=== PATIENT | female | born 1950 | race African-American/Black ===

== ENCOUNTER 2016-11-05 16:50 | Emergency (ER) | payer OTHER, MEDICARE ==
[~2016-11-05] VITALS: Ht 167.6 cm; Wt 79.4 kg
[~2016-11-05 16:50] MED LIST: APRESOLINE50 MG PO; ASPIRIN EC325 M2 PO; ATORVASTATIN CA10 M1 PO; ATORVASTATIN CA10 MG PO; CLARITIN10 MG PO; COZAAR 50MG TAB50 MG PO; DOCUSATE SODIU100 MG PO; EPOGEN10000 UNIT IV; FLEXERIL10 MG PO; FUROSEMIDE40 MG PO; GABAPENTIN300 M2 PO; HECTOROL4 MCG/2 ML IV; HUMALOG100 UNIT/2 SC; HYDRALAZINE10 MG PO; HYDROXYZINE50 MG PO; LASIX40 MG PO; LASIX80 MG PO; LEVEMIR 10100 UNITS/ SC; LEVEMIR100 UNIT/1 SC; LIDODERM1 EACH TOP; LOPRESSOR 25MG25 MG PO; LOPRESSOR50 MG PO; LORADAMED10 MG PO; LOSARTAN POTASS25 M1 PO; LOSARTAN POTASS50 M1 PO; LOSARTAN POTASS50 MG PO; MASON NATURAL2000 IU PO; METOPROLOL TART25 M1 PO; NEPHROCAPS1 TAB PO; NOVOLOG100 U/ML SC; NOVOLOG100 UNIT/2 SC; PERCOCET 325 MG1 TA2 PO; PHOS LO667 MG PO; PHOSLYRA667 MG/51 PO; SENNA S TABLET1 EACH PO; SENSIPAR30 M1 PO; TYLENOL325 M1 PO; VENOFER100 MG/5 M IV; VICODIN5-300 PO; VITAMIN D1000 IU PO
--- NOTE | 2016-11-05 18:43 | ED SKIN/ALLERGY COMPLAINT ---
History of Present Illness General Chief Complaint: Skin Rash/ Abcess Stated Complaint: BODY ITCHING Source: patient, family Exam Limitations: no limitations Vital Signs & Intake/Output Vital Signs & Intake/Output Vital Signs Date Time Temp Pulse Resp B/P B/P Pulse O2 O2 Flow FiO2 Mean Ox Delivery Rate 11/05 1702 98.1 86 16 106/67 98 Room Air Allergies Coded Allergies: NO KNOWN ALLERGIES (04/04/16) Triage Note: PT C/O BODY ITCHING ALL OVER NO RASH NOTED. PT STATES SHE HAS ALLERGY. Triage Nurses Notes Reviewed? yes Onset: Abrupt Duration: day(s): (3) Timing: recent history Severity: mild Location: generalized HPI: This is a 65-year-old female with history of end-stage renal disease on hemodialysis, recently started on Aggrenox in order to keep her graft patent who presents to the ER for chief complaint of itching all over her body. She states that the itching started after the medication. Denies any difficulty swallowing. She states she feels a little bit short of breath. Today she called the dialysis unit and the nurse told her to come to the ER. She took one dose of Benadryl this morning without relief. She took 2 doses of Benadryl prior to coming without any relief. (JOE FRANCIS,ARPAN) Reconcile Medications Acetaminophen (Tylenol) 325 MG TABLET 1 TAB PO PRN PAIN (Reported) Aspirin (Ecotrin*) 81 MG TABLET.DR 1 TAB PO DAILY HEART/BLOOD (Reported) Atorvastatin Calcium 10 MG TABLET 1 TAB PO DAILY CHOLESTEROL (Reported) Calcium Acetate (Phoslyra) 667 MG (169 MG CALCIUM)/5 ML SOLUTION 2 CAP PO TID PHOSPHORUS BINDER (Reported) Cholecalciferol (Vitamin D3) (Vitamin D) 2,000 UNIT CAPSULE 1 CAP PO DAILY SUPPLEMENT (Reported) Cinacalcet HCl (Sensipar) 30 MG TABLET 1 TAB PO DAILY KIDNEYS (Reported) Dipyridamole W/ Aspirin (Aggrenox 25 MG-200 MG Capsule) 25 MG-200 MG CPMP.12HR 1 CAP PO BID BLOOD (Reported) Gabapentin 300 MG CAPSULE 1 CAP PO TID NERVE PAIN (Reported) Insulin Aspart (Novolog) 100 UNIT/ML VIAL 5 UNITS SC BIDAC DM (Reported) Insulin Detemir (Levemir) 100 UNIT/ML VIAL 6 UNITS SC QPM DM (Reported) Lidocaine (Lidoderm) 1 EACH ADH..PATCH 1-2 PAT TOP DAILY PRN PAIN (Reported) may wear up to 12 hours Losartan Potassium 25 MG TABLET 1 TAB PO DAILY BP (Reported) Metoprolol Tartrate 25 MG TABLET 0.5 TAB PO BID HEART/BP (Reported) Nephro-Vitamins (Nephro-Tawana Tablet) 0.8 MG TABLET 1 TAB PO DAILY SUPPLEMENT (Reported) Sennosides/Docusate Sodium (Senna S Tablet) 1 EACH TABLET 2 TAB PO AT BEDTIME Constipation (Reported) (KALIA FRANCIS,EUGENE Hill) Past History Travel History Traveled to [place] past 21 day No Medical History Any Pertinent Medical History? 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 No (JOE FRANCIS,ARPAN) Review of Systems Review of Systems Constitutional: Denies: chills, fever. EENTM: Denies: throat pain. Respiratory: Reports: short of breath. Cardiovascular: Denies: chest pain, palpitations, peripheral edema. GI: Reports: no symptoms. Genitourinary: Reports: no symptoms. Musculoskeletal: Reports: no symptoms. Skin: Reports: see HPI (ITCHING). Neurological/Psychological: Reports: no symptoms. Hematologic/Endocrine: Reports: no symptoms. Immunologic/Allergic: Reports: no symptoms. All Other Systems: Reviewed and Negative (JOE FRANCIS,ARPAN) Physical Exam Physical Exam General Appearance: well developed/nourished, alert, awake, mild distress Head: atraumatic Eyes: Bilateral: PERRL, EOMI. Ears, Nose, Throat: normal pharynx, normal ENT inspection, hearing grossly normal Neck: normal inspection, supple Respiratory: normal breath sounds Cardiovascular: regular rate/rhythm Gastrointestinal: soft, non-tender Back: normal inspection Extremities: normal inspection, normal range of motion, no edema, ARM FISTULAS Neurologic/Psych: awake, alert, oriented x 3, normal mood/affect Skin: intact, normal color, warm/dry Skin Problem Location: generalized Lymphatic: no anterior cervical ellie (ARPAN DIAZ MD) Progress Differential Diagnosis: allergic reaction, drug reaction Plan of Care: Orders Procedure Date/time Status CBC WITHOUT DIFFERENTIAL 11/05 1958 Active BASIC METABOLIC PANEL 11/05 1958 Active Hand-Off Endorsed To: EUGENE EPPS MD Endorsed Time: 1911 Pending: other (REEVALUATION) (ARPAN DIAZ MD) Comments: 11/05/2016 8:00:13 PM patient signed out to me by Dr. 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 Patient states she still feeling itchy but has just received prednisone. I feel once the prednisone becomes active patient should receive relief. I have sent a CVC and BMP to check for an elevation in white blood cell count or hyperuricemia. I Feel the patient is stable for discharge and I will follow up with the lab results. (KALIA FRANCIS,EUGENE Hill) Departure Departure Condition: Stable Referrals: EDU FORBES APRN (PCP/Family) Departure Forms: Customer Survey General Discharge Information (ARPAN DIAZ MD) Departure Disposition: HOME OR SELF CARE Clinical Impression Primary Impression: Generalized pruritus Secondary Impressions: Renal failure Qualifiers: Renal failure chronicity: chronic Chronic kidney disease stage: unspecified stage Qualified Code: N18.9 - Chronic kidney disease, unspecified Additional Instructions: You have been given a dose of prednisone and this will begin working in another few hours. Itching should begin to resolve at that point. Please note that the prednisone will increase her blood sugar levels so please monitor her blood sugar levels before each meal and at bedtime. If your blood sugar levels are running higher than 250 and please contact your diabetes doctor. You may continue the Benadryl every 6-8 hours as needed. Continue with any dialysis you have scheduled. Follow-up with your primary care doctor this week for reevaluation of the itching. If there is any changes on your blood tests that require further evaluation or treatment I will contact you this evening. Return if any concerns or sudden worsening. Thank you for choosing the [facility] Department for your care. It was a pleasure to serve you today. Eugene Epps M.D. [facility] Prescriptions: Current Visit Scripts Prednisone (Deltasone) 1 TAB PO DAILY #2 TAB BEGIN TOMORROW (KALIA FRANCIS,EUGENE Hill)
[2016-11-05] MEDS ORDERED: ASPIRIN EC81 M1 PO (19:23)
[2016-11-05] MEDS ORDERED: AGGRENOX 25 MG1 EACH PO (19:24)
[2016-11-05] MEDS ORDERED: VITAMIN D2000 UNIT PO (19:25)
[2016-11-05] MEDS ORDERED: NEPHRO-VITE TA0.8 MG PO (19:26)
[2016-11-05] MEDS ORDERED: LEVEMIR100 UNIT/1 SC (19:29)
[2016-11-05] MEDS ORDERED: NOVOLOG100 UNIT/2 SC (19:29)
[2016-11-05] MEDS ORDERED: DELTASONE20 MG PO (20:14)
[2016-11-05 20:27] VITALS: BP 140/70
[2016-11-05 20:34] LABS: ABSOLUTE BASOPHIL COUNT 0.1 /CUMM (0.0-0.2); ABSOLUTE EOSINOPHIL COUNT 0.6 /CUMM (0.0-0.7); ABSOLUTE GRANULOCYTE CT 3.2 /CUMM (1.4-6.5); ABSOLUTE LYMPH COUNT 1.8 /CUMM (1.2-3.4); ABSOLUTE MONOCYTE COUNT 0.7 /CUMM (0.10-0.60); BASOPHIL % 0.8 % (0.0-2.0); EOSINOPHIL % 9.3 % (0-5); GRANULOCYTE % 50.6 % (42.2-75.2); HEMATOCRIT 32.6 % (37-47); MEAN CORPUSCULAR HGB 30.9 PG (27.0-31.0); MEAN CORPUSCULAR HGB CONC 32.4 G/DL (33.0-37.0); MEAN CORPUSCULAR VOLUME 95.4 FL (81.0-99.0); MEAN PLATELET VOLUME 9.7 FL (7.4-10.4); PLATELET COUNT 153 /CUMM (130-400); RBC DISTRIBUTION WIDTH 14.1 % (11.5-14.5); RED BLOOD CELL CT 3.41 /CUMM (4.20-5.40); WHITE BLOOD CELL COUNT 6.3 /CUMM (4.8-10.8)
== END 2016-11-05 20:48 ==
LOC: ERH 16:50
PROVIDERS: Emergency Medicine
DX: L29.9 Pruritus, unspecified (principal); N19 Unspecified kidney failure

== ENCOUNTER 2017-11-28 09:59 | Inpatient (IN) | payer OTHER, MEDICARE ==
[~2017-11-28] VITALS: Ht 167.6 cm; Wt 79.9 kg
[~2017-11-28 09:59] MED LIST changes: +AGGRENOX 25 MG1 EACH PO; +ASPIRIN EC81 M1 PO; +BENADRYL25 MG PO; +CEFAZOLIN SODIUM1 G1 IV; +DELTASONE20 MG PO; +NEPHRO-VITE TA0.8 MG PO; +VITAMIN D2000 UNIT PO
--- NOTE | 2017-11-28 11:43 | ED GENERAL ADULT ---
History of Present Illness General Chief Complaint: General Adult Stated Complaint: CLOGGED FISULA Source: patient Exam Limitations: no limitations Vital Signs & Intake/Output Vital Signs & Intake/Output Vital Signs Date Time Temp Pulse Resp B/P B/P Pulse O2 O2 Flow FiO2 Mean Ox Delivery Rate 12/03 1717 97.9 77 16 100/60 12/03 1446 97.9 77 16 100/60 93 Room Air 12/03 1115 Room Air 12/03 1051 Room Air 12/03 0923 90 90/50 12/03 0923 90 90/50 12/03 0915 90 18 90/50 99 ED Intake and Output 12/04 0000 12/03 1200 Intake Total 760 240 Output Total Balance 760 240 Intake, Oral 760 240 Number 1 1 Bowel Movements Patient 176 lb 176 lb Weight Weight Bed scale Measurement Method Allergies Coded Allergies: No Known Allergies (02/01/17) Triage Note: 66 YO FEMALE SENT TO ER BY [facility] OFF[facility] FOR CLOGGED DIALYSIS FISTULA. PT WAS SUPPOSED TO HAVE DIALYSIS YESTERDAY BUT WASNT ABLE TO GET IT DONE DUE TO IT BEING CLOGGED. DR WALKER OFFICE CALLED AND WOULD LIKE THE ER TO SET UP THE PT TO GO TO IR TODAY FOR A NEW CATH. Triage Nurses Notes Reviewed? yes HPI: This is a 66-year-old female with history of end-stage renal disease on hemodialysis who presents to the emergency department after her dialysis clinic was unable to flush her access dialysis fistula. She arrives hoping for placement of a new dialysis catheter. She has had no systemic signs or symptoms , eating well, making some urine. Arrives with no acute complaints. (Isra FRANCIS,Chad) Reconcile Medications Acetaminophen (Tylenol) 325 MG TABLET 1 TAB PO PRN PAIN (Reported) Amlodipine Besylate 10 MG TABLET 1 TAB PO DAILY HEART (Reported) Aspirin (Ecotrin*) 81 MG TABLET.DR 1 TAB PO DAILY HEART/BLOOD (Reported) Atorvastatin Calcium 10 MG TABLET 1 TAB PO DAILY CHOLESTEROL (Reported) Calcium Acetate (Phoslyra) 667 MG (169 MG CALCIUM)/5 ML SOLUTION 2 CAP PO TID PHOSPHORUS BINDER (Reported) Cholecalciferol (Vitamin D3) (Vitamin D) 2,000 UNIT CAPSULE 1 CAP PO DAILY SUPPLEMENT (Reported) Cinacalcet HCl (Sensipar) 30 MG TABLET 1 TAB PO DAILY KIDNEYS (Reported) diphenhydrAMINE HCl (Benadryl) 25 MG CAPSULE 1 CAP PO QAM ALLERGIES (Reported ) Dipyridamole W/ Aspirin (Aggrenox 25 MG-200 MG Capsule) 25 MG-200 MG CPMP.12HR 1 CAP PO BID BLOOD (Reported) Gabapentin 300 MG CAPSULE 1 CAP PO TID PRN NERVE PAIN (Reported) Insulin Aspart (Novolog) 100 UNIT/ML VIAL 0 UNITS SC TIDAC diabetes BEFORE MEALS Blood Insulin Sugar Units <80 0 81-150 2 151-200 3 201-250 4 251-300 5 301-350 6 351-400 7 >400 7 Call Doctor Insulin Detemir (Levemir) 100 UNIT/ML VIAL 6 UNITS SC QPM DM (Reported) Insulin Lispro (Humalog) 100 UNIT/ML VIAL 5 UNIT SC BIDAC DM (Reported) Losartan Potassium 25 MG TABLET 1 TAB PO DAILY BP (Reported) Nephro-Vitamins (Nephro-Tawana Tablet) 0.8 MG TABLET 1 TAB PO DAILY SUPPLEMENT (Reported) Sennosides/Docusate Sodium (Senna S Tablet) 1 EACH TABLET 2 TAB PO AT BEDTIME Constipation (Reported) (Supriya FRANCIS,Eugene Carrera) Past History Travel History Traveled to [place] past 21 day No Medical History Any Pertinent Medical History? 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 No (Isra FRANCIS,Chad) Review of Systems Review of Systems Constitutional: Reports: no symptoms. EENTM: Reports: no symptoms (patient is blind at baseline). Respiratory: Reports: no symptoms. Cardiovascular: Reports: no symptoms. GI: Reports: no symptoms. Musculoskeletal: Reports: no symptoms. Skin: Reports: no symptoms. Neurological/Psychological: Reports: no symptoms. Hematologic/Endocrine: Reports: no symptoms. (Chad Dhaliwal MD) Physical Exam Physical Exam General Appearance: well developed/nourished, no apparent distress, alert, awake Head: atraumatic, normal appearance Ears, Nose, Throat: normal pharynx, normal ENT inspection, hearing grossly normal Neck: normal inspection Respiratory: normal breath sounds Cardiovascular: regular rate/rhythm Gastrointestinal: normal bowel sounds, soft, non-tender Back: normal inspection, normal range of motion Extremities: normal inspection, normal capillary refill, normal range of motion, no edema Neurologic/Psych: no motor/sensory deficits, awake, alert, oriented x 3 Skin: intact Core Measures ACS in differential dx? No CVA/TIA Diagnosis: No Sepsis Present: No Sepsis Focused Exam Completed? No (Chad Dhaliwal MD) Progress Differential Diagnoses I considered the following diagnoses in my evaluation of the patient: metabolic derangement; clotted fistula; doubt infectious process or DVT Plan of Care: Orders Procedure Date/time Status Therapeutic Activities 12/03 UNK Complete PT EVAL LOW COMPLEX 20 MIN 12/03 UNK Complete Gait Training 12/03 UNK Complete Discharge Patient 12/03 UNK Active MISSING MEDICATION FORM 12/03 UNK Active Will check basic labs and ECG; call IR for possible catheter placement. According to Dr. Walker with interventional radiology, patient will require moderate sedation for placement of a tunneled catheter. This would require 8 hours of n.p.o. status. For this, she would likely need to be n.p.o. overnight and return tomorrow morning for placement. However, she requires urgent dialysis, she could have a temporary catheter placed for inpatient dialysis. Lab work is significant for an elevated potassium to 5.8. There are no EKG changes suggestive of acute cardiac involvement. However, this level is too high to send the patient home for dialysis tomorrow. Given this, will contact hospitalist for admission and placement of temporary catheter. Initial ED EKG: normal intervals, normal p-waves, normal QRS complex, normal sinus rhythm, no ST T wave changes (Chad Dhaliwal MD) Departure Departure Disposition: STILL A PATIENT Condition: Stable Clinical Impression Primary Impression: Dialysis AV fistula malfunction Referrals: Stan Almeida MD (PCP/Family) Departure Forms: Customer Survey General Discharge Information Admission Note Spoke With: Yamel Kirkland MD Documentation of Exam: Documentation of any treatments & extenuating circumstances including Concerns Regarding Discharge (functional status, medication knowledge or non-compliance, living conditions, etc.) that warrant an admission rather than observation: Patient will require placement of new dialysis catheter. She will require inpatient hemodialysis and close monitoring of hemodynamic status. (Isra FRANCIS,Chad) PA/PLAYGROUND SUPERVISOR Co-Sign Statement Statement: ED Attending supervision documentation- [X] I saw and evaluated the patient. I have also reviewed all the pertinent lab results and diagnostic results. I agree with the findings and the plan of care as documented in the PA's/PLAYGROUND SUPERVISOR's documentation. Patient presents for evaluation of her dysfunctional dialysis fistula. Physical examination reveals no active bleeding from the fistula. [] I have reviewed the ED Record and agree with the PA's/PLAYGROUND SUPERVISOR's documentation. [] Additions or exceptions (if any) to the PAs/PLAYGROUND SUPERVISOR's note and plan are summarized below: [] (Supriya FRANCIS,Eugene Carrera) Critical Care Note Critical Care Note Critical Care Time: non-applicable (Chad Dhaliwal MD) (Aggrenox) Insulin Detemir 6 UNITS QPM 11/28 2100 AC 11/28 (Levemir) 204 Senna/Docusate Sodium 2 TAB AT BEDTIME 11/28 2100 AC 11/28 (Senokot S) 2049 Gabapentin 300 MG TID PRN 11/28 1845 AC (Neurontin) Phytonadione 10 MG ONCE ONE 11/28 173 CAN (Vitamin K) 11/28 173 Laboratory Tests 11/28/17 1300: Anion Gap 19 H, Estimated GFR 3 L, BUN/Creatinine Ratio 8.3, Glucose 145 H, Calcium 8.2 L, PT 22.0 H, INR 2.00 H, D-Dimer High Sensitivty 543 H, CBC w Diff NO MAN DIFF REQ, RBC 3.70 L, MCV 94.1, MCH 30.7, MCHC 32.6 L, RDW 18.4 H , MPV 9.5, Gran % 57.4, Lymphocytes % 28.0, Monocytes % 10.2 H, Eosinophils % 4.1, Basophils % 0.3, Absolute Granulocytes 3.4, Absolute Lymphocytes 1.7, Absolute Monocytes 0.6, Absolute Eosinophils 0.2, Absolute Basophils 0 Will check basic labs and ECG; call IR for possible catheter placement. According to Dr. Walker with interventional radiology, patient will require moderate sedation for placement of a tunneled catheter. This would require 8 hours of n.p.o. status. For this, she would likely need to be n.p.o. overnight and return tomorrow morning for placement. However, she requires urgent dialysis, she could have a temporary catheter placed for inpatient dialysis. Lab work is significant for an elevated potassium to 5.8. There are no EKG changes suggestive of acute cardiac involvement. However, this level is too high to send the patient home for dialysis tomorrow. Given this, will contact hospitalist for admission and placement of temporary catheter. Initial ED EKG: normal intervals, normal p-waves, normal QRS complex, normal sinus rhythm, no ST T wave changes Departure Departure Disposition: STILL A PATIENT Condition: Stable Clinical Impression Primary Impression: Dialysis AV fistula malfunction Referrals: Stan Almeida MD (PCP/Family) Departure Forms: Customer Survey General Discharge Information Admission Note Spoke With: Isael FRANCIS,Yamel Documentation of Exam: Documentation of any treatments & extenuating circumstances including Concerns Regarding Discharge (functional status, medication knowledge or non-compliance, living conditions, etc.) that warrant an admission rather than observation: Patient will require placement of new dialysis catheter. She will require inpatient hemodialysis and close monitoring of hemodynamic status. Critical Care Note Critical Care Note Critical Care Time: non-applicable
[2017-11-28 13:11] LABS: ABSOLUTE BASOPHIL COUNT 0 /CUMM (0.0-0.2); ABSOLUTE EOSINOPHIL COUNT 0.2 /CUMM (0.0-0.7); ABSOLUTE GRANULOCYTE CT 3.4 /CUMM (1.4-6.5); ABSOLUTE LYMPH COUNT 1.7 /CUMM (1.2-3.4); ABSOLUTE MONOCYTE COUNT 0.6 /CUMM (0.10-0.60); BASOPHIL % 0.3 % (0.0-2.0); EOSINOPHIL % 4.1 % (0-5); GRANULOCYTE % 57.4 % (42.2-75.2); HEMATOCRIT 34.8 % (37-47); MEAN CORPUSCULAR HGB 30.7 PG (27.0-31.0); MEAN CORPUSCULAR HGB CONC 32.6 G/DL (33.0-37.0); MEAN CORPUSCULAR VOLUME 94.1 FL (81.0-99.0); MEAN PLATELET VOLUME 9.5 FL (7.4-10.4); PLATELET COUNT 221 /CUMM (130-400); RBC DISTRIBUTION WIDTH 18.4 % (11.5-14.5); WHITE BLOOD CELL COUNT 5.9 /CUMM (4.8-10.8)
[2017-11-28] MEDS ORDERED: AMLODIPINE BESY10 M1 PO (14:19)
[2017-11-28] MEDS ORDERED: COUMADIN2.5 M1 PO (14:20)
--- NOTE | 2017-11-28 17:50 | Cons- Nephrology ---
General Information and HPI Consulting Request Date of Consult: 11/28/17 Requested By: Dr Dhaliwal (ER) Reason for Consult: eval/management of ESRD Source of Information: patient, family Exam Limitations: no limitations History of Present Illness: The patient is an unfortunate 66-year-old female with a history of end-stage renal disease x4 years on HD, PVD, DM, blindness, who unfortunately has had recurrent issues with access thrombosis. She has had numerous fistulagrams with declots for clotted accesses. She has an old left upper ext AV graft which has failed. She has an old right upper extremity AV graft which has failed. She has a second right upper extremity AV graft which has had recurrent thrombosis despite multiple attempts of anticoagulation. Initially she was on Aggrenox and had been on Plavix and more recently has been on Coumadin. INR is 2.0 on admission which is therapeutic. She was sent to the hospital by Dr. Almeida's office after they were contacted from the [facility] that her access was noted to be clotted yesterday. She was advised to go to the emergency room for Kandi catheter placement, as no additional attempts for declotting are planned. She is otherwise feeling okay, without acute complaints. She is very frustrated with the lack of a stable dialysis access. She's had prior Kandi catheters placements. She's never been on peritoneal dialysis and denies a history of intra-abdominal surgery. Potassium is 5.8. Allergies/Medications Allergies: Coded Allergies: No Known Allergies (02/01/17) Home Med List: Acetaminophen (Tylenol) 325 MG TABLET 1 TAB PO PRN PAIN (Reported) Amlodipine Besylate 10 MG TABLET 1 TAB PO DAILY HEART (Reported) Aspirin (Ecotrin*) 81 MG TABLET.DR 1 TAB PO DAILY HEART/BLOOD (Reported) Atorvastatin Calcium 10 MG TABLET 1 TAB PO DAILY CHOLESTEROL (Reported) Calcium Acetate (Phoslyra) 667 MG (169 MG CALCIUM)/5 ML SOLUTION 2 CAP PO TID PHOSPHORUS BINDER (Reported) Cholecalciferol (Vitamin D3) (Vitamin D) 2,000 UNIT CAPSULE 1 CAP PO DAILY SUPPLEMENT (Reported) Cinacalcet HCl (Sensipar) 30 MG TABLET 1 TAB PO DAILY KIDNEYS (Reported) diphenhydrAMINE HCl (Benadryl) 25 MG CAPSULE 1 CAP PO QAM ALLERGIES (Reported ) Dipyridamole W/ Aspirin (Aggrenox 25 MG-200 MG Capsule) 25 MG-200 MG CPMP.12HR 1 CAP PO BID BLOOD (Reported) Gabapentin 300 MG CAPSULE 1 CAP PO TID PRN NERVE PAIN (Reported) Insulin Aspart (Novolog) 100 UNIT/ML VIAL 0 UNITS SC TIDAC diabetes BEFORE MEALS Blood Insulin Sugar Units <80 0 81-150 2 151-200 3 201-250 4 251-300 5 301-350 6 351-400 7 >400 7 Call Doctor Insulin Detemir (Levemir) 100 UNIT/ML VIAL 6 UNITS SC QPM DM (Reported) Insulin Lispro (Humalog) 100 UNIT/ML VIAL 5 UNIT SC BIDAC DM (Reported) Losartan Potassium 25 MG TABLET 1 TAB PO DAILY BP (Reported) Nephro-Vitamins (Nephro-Tawana Tablet) 0.8 MG TABLET 1 TAB PO DAILY SUPPLEMENT (Reported) Sennosides/Docusate Sodium (Senna S Tablet) 1 EACH TABLET 2 TAB PO AT BEDTIME Constipation (Reported) Warfarin Sodium (Coumadin) 2.5 MG TABLET 1 TAB PO 1700 BLOOD THINNER ( Reported) Current Medications: Current Medications Sig/Aurelio Start time Last Medication Dose Route Stop Time Status Admin Phytonadione 10 MG ONCE ONE 11/28 1730 CAN IM 11/28 1731 Phytonadione 10 MG ONCE ONE 11/28 1730 DC PO 11/28 1731 Sodium Polystyrene 0 .STK-MED ONE 11/28 1611 DC Sulfonate .ROUTE Sodium Polystyrene 60 ML ONCE ONE 11/28 1600 DC 11/28 Sulfonate PO 11/28 1601 1621 Review of Systems Review of Systems: Gen: neg fever, chills, nightsweats, wt loss Skin: neg rash, pruritus Eye: +blindnesss ENT: neg hearing changes, rhinitus CV: neg CP, SOB, MURILLO, PND, orthopnea Pulm: neg cough, sputum, hemoptysis GI: neg nausea, vomiting, diarrhea, abdominal pain, hematemesis, BRBPR : neg dysuria, frequency, urgency, hematuria, foamy urine, nocturia Musculoskeletal: neg myalgias, arthralgias Neuro: neg weakness, numbness Psych: neg depression, mental status changes Heme: neg bruising, easy bleeding, clots Past History Travel History Traveled to [place] past 21 day No Medical History Neurological: peripheral neuropathy EENT: blindness Cardiovascular: hypertension, hyperlipidemia Respiratory: obstructive sleep apnea, pneumonia Gastrointestinal: poor prep on a screening colonoscopy in 2013 Hepatic: NONE Renal: ESRD on HD Musculoskeletal: chronic back pain Psychiatric: NONE Endocrine: diabetes Blood Disorders: anemia Cancer(s): NONE 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 Ambulation: assisstance IADLs Independent: shopping, housework, finances, food prep, telephone, transportation , medication admin. Exam & Diagnostic Data Vital Signs and I&O Vital Signs Date Time Temp Pulse Resp B/P B/P Pulse O2 O2 Flow FiO2 Mean Ox Delivery Rate 11/28 1440 70 18 149/67 100 Nasal 2.0L Cannula 11/28 1333 98 Nasal 2.0L Cannula 11/28 1333 71 18 154/72 89 Room Air 11/28 1226 Room Air 11/28 1001 98.8 88 18 105/61 98 Room Air Intake & Output 11/28 1600 07 0400 11/27 1600 11/27 0400 11/26 1600 11/26 0400 Intake Total Output Total Balance Patient 170 lb Weight Weight Reported by Patient Measurement Method Physical Exam: General: NAD, A+O x3. HEENT: NC/AT. No icterus. Blind. Neck: negative for JUAN ANTONIO, JVD CV: RRR, no m/r/g Pulm: CTAB, no rales Abd: soft, NT/ND, negative renal bruits Lower Ext: neg edema or chronic venous changes Upper Ext: Old LUE AVG no thrill/bruit. 2 RUE AVGs-> no thrill/bruit in either Back: negative for CVA tenderness Neuro: neg tremor, asterixis Skin: no rash, jaundice : no isaac catheter Results Pertinent Lab Results: Laboratory Tests 11/28 1300 Chemistry Sodium (137 - 145 mmol/L) 137 Potassium (3.5 - 5.1 mmol/L) 5.8 H Chloride (98 - 107 mmol/L) 98 Carbon Dioxide (22 - 30 mmol/L) 20 L Anion Gap (5 - 16) 19 H BUN (7 - 17 mg/dL) 98 H Creatinine (0.5 - 1.0 mg/dL) 11.8 *H Estimated GFR (>60 ml/min) 3 L BUN/Creatinine Ratio (7 - 25 %) 8.3 Glucose (65 - 99 mg/dL) 145 H Calcium (8.4 - 10.2 mg/dL) 8.2 L Coagulation PT (9.4 - 12.5 SEC) 22.0 H INR (0.90 - 1.19) 2.00 H Hematology CBC w Diff NO MAN DIFF REQ WBC (4.8 - 10.8 /CUMM) 5.9 RBC (4.20 - 5.40 /CUMM) 3.70 L Hgb (12.0 - 16.0 G/DL) 11.4 L Hct (37 - 47 %) 34.8 L MCV (81.0 - 99.0 FL) 94.1 MCH (27.0 - 31.0 PG) 30.7 MCHC (33.0 - 37.0 G/DL) 32.6 L RDW (11.5 - 14.5 %) 18.4 H Plt Count (130 - 400 /CUMM) 221 MPV (7.4 - 10.4 FL) 9.5 Gran % (42.2 - 75.2 %) 57.4 Lymphocytes % (20.5 - 51.1 %) 28.0 Monocytes % (1.7 - 9.3 %) 10.2 H Eosinophils % (0 - 5 %) 4.1 Basophils % (0.0 - 2.0 %) 0.3 Absolute Granulocytes (1.4 - 6.5 /CUMM) 3.4 Absolute Lymphocytes (1.2 - 3.4 /CUMM) 1.7 Absolute Monocytes (0.10 - 0.60 /CUMM) 0.6 Absolute Eosinophils (0.0 - 0.7 /CUMM) 0.2 Absolute Basophils (0.0 - 0.2 /CUMM) 0 Assessment/Plan Assessment/Recommendations Assessment: Hyperkalemia: There is no emergent dialytic need tonight. I spoke to the emergency room about giving Kayexalate 15 g per 60 mL 1 given it will likely be another 24 hrs before she is dialyzed. Would admit to telemetry. Clotted AV grafts: I spoke in detail with her vascular surgeon Stan Almeida MD. Unfortunately he feels that the axis is in salvageable as every single attempt for fistulogram with D clots has only been very transiently successful and she's had recurrent episodes of thrombosis requiring innumerable declots. At this point she will need an Kandi catheter placed and continue on hemodialysis via a chronic Kandi catheter. I did speak with the patient about the possibility of peritoneal dialysis however, blindness prevents her from being able to do peritoneal dialysis on her own. In order to transition peritoneal dialysis she would need to live in a long-term longterm with the nurses are trained in PD , or one of her family members would need to take on the responsibility 100%. I have asked the patient's and whatever other family members are involved to meet with me tomorrow afternoon in the hospital to further discuss the plan from here. Given need for Kandi catheter and the INR of 2.0 would give a dose of IV vitamin K now in the emergency room. Would recheck an INR around 5 AM tomorrow. There is a possibility she needs a transfusion of FFP prior to the Kandi catheter placement. Typically IR would like a INR of less than 1.5 in order to proceed with an Kandi catheter. Would make nothing by mouth at midnight. Would discontinue the Coumadin as she was only on that for prevention of Kandi catheter thrombosis and clearly has been ineffective , as were trials of additional anticoagulant such as Aggrenox. Recommendations: Vitamin K IV 1 Admitted to telemetry Nothing by mouth at midnight Discontinue warfarin without plan to resume Repeat BMP tomorrow morning as well as PT/INR around 5 AM Type and screen as she may need a transfusion of plasma tomorrow morning prior to the Kandi catheter if the INR remains over 1.5 IR consult for Kandi catheter in the morning We'll plan to dialyze in the hospital tomorrow afternoon after the Kandi catheter is in place Thank you for the consult
--- NOTE | 2017-11-28 17:57 | History & Physical ---
José Luis Ochoa MD 11/28/17 1753: General Information and HPI Source of Information: patient, family Exam Limitations: no limitations History of Present Illness: Ms. Franklin is a 66-year-old female past medical history of her follow-up thecal hypertension, hyperlipidemia, TIARA, end-stage renal disease on hemodialysis, diabetes was, and anemia comes in for dialysis. The patient is on hemodialysis Saturday. On Saturday, she went for dialysis and her fistulas clot rates that she came in for further evaluation. She has some chronic shortness of breath or otherwise denies chest pain, nausea, vomiting, diarrhea, cough, abdominal pain, or dysuria. She is never smoker, denies alcohol or drug use. Allergies/Medications Allergies: Coded Allergies: No Known Allergies (02/01/17) Home Med list Acetaminophen (Tylenol) 325 MG TABLET 1 TAB PO PRN PAIN (Reported) Amlodipine Besylate 10 MG TABLET 1 TAB PO DAILY HEART (Reported) Aspirin (Ecotrin*) 81 MG TABLET.DR 1 TAB PO DAILY HEART/BLOOD (Reported) Atorvastatin Calcium 10 MG TABLET 1 TAB PO DAILY CHOLESTEROL (Reported) Calcium Acetate (Phoslyra) 667 MG (169 MG CALCIUM)/5 ML SOLUTION 2 CAP PO TID PHOSPHORUS BINDER (Reported) Cholecalciferol (Vitamin D3) (Vitamin D) 2,000 UNIT CAPSULE 1 CAP PO DAILY SUPPLEMENT (Reported) Cinacalcet HCl (Sensipar) 30 MG TABLET 1 TAB PO DAILY KIDNEYS (Reported) diphenhydrAMINE HCl (Benadryl) 25 MG CAPSULE 1 CAP PO QAM ALLERGIES (Reported ) Dipyridamole W/ Aspirin (Aggrenox 25 MG-200 MG Capsule) 25 MG-200 MG CPMP.12HR 1 CAP PO BID BLOOD (Reported) Gabapentin 300 MG CAPSULE 1 CAP PO TID PRN NERVE PAIN (Reported) Insulin Aspart (Novolog) 100 UNIT/ML VIAL 0 UNITS SC TIDAC diabetes BEFORE MEALS Blood Insulin Sugar Units <80 0 81-150 2 151-200 3 201-250 4 251-300 5 301-350 6 351-400 7 >400 7 Call Doctor Insulin Detemir (Levemir) 100 UNIT/ML VIAL 6 UNITS SC QPM DM (Reported) Insulin Lispro (Humalog) 100 UNIT/ML VIAL 5 UNIT SC BIDAC DM (Reported) Losartan Potassium 25 MG TABLET 1 TAB PO DAILY BP (Reported) Nephro-Vitamins (Nephro-Tawana Tablet) 0.8 MG TABLET 1 TAB PO DAILY SUPPLEMENT (Reported) Sennosides/Docusate Sodium (Senna S Tablet) 1 EACH TABLET 2 TAB PO AT BEDTIME Constipation (Reported) Warfarin Sodium (Coumadin) 2.5 MG TABLET 1 TAB PO 1700 BLOOD THINNER ( Reported) Past History Travel History Traveled to [place] past 21 day No Medical History Neurological: peripheral neuropathy EENT: blindness Cardiovascular: hypertension, hyperlipidemia Respiratory: obstructive sleep apnea, pneumonia Gastrointestinal: poor prep on a screening colonoscopy in 2012 Hepatic: NONE Renal: ESRD on HD Musculoskeletal: chronic back pain Psychiatric: NONE Endocrine: diabetes Blood Disorders: anemia Cancer(s): NONE 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 Ambulation: assisstance IADLs Independent: shopping, housework, finances, food prep, telephone, transportation , medication admin. Review of Systems Review of Systems Constitutional: Reports: no symptoms. EENTM: Reports: no symptoms. Cardiovascular: Reports: no symptoms. Respiratory: Reports: see HPI. GI: Reports: no symptoms. Genitourinary: Reports: no symptoms. Musculoskeletal: Reports: no symptoms. Skin: Reports: no symptoms. Neurological/Psychological: Reports: no symptoms. Hematologic/Endocrine: Reports: no symptoms. Immunologic/Allergic: Reports: no symptoms. All Other Systems: Reviewed and Negative Exam & Diagnostic Data Last 24 Hrs of Vital Signs/I&O Vital Signs Date Time Temp Pulse Resp B/P B/P Pulse O2 O2 Flow FiO2 Mean Ox Delivery Rate 11/28 1440 70 18 149/67 100 Nasal 2.0L Cannula 11/28 1333 98 Nasal 2.0L Cannula 11/28 1333 71 18 154/72 89 Room Air 11/28 1226 Room Air 11/28 1001 98.8 88 18 105/61 98 Room Air Intake & Output 11/28 1600 11/28 0800 0705 0000 Intake Total Output Total Balance Patient 77.111 kg Weight Weight Reported by Patient Measurement Method Physical Exam General Appearance Alert, Oriented X3, Cooperative, No Acute Distress Cardiovascular Regular Rate, Normal S1, Normal S2 Lungs mild crackles Abdomen Normal Bowel Sounds, Soft, No Tenderness Extremities No Edema, Normal Pulses, No Tenderness/Swelling Last 24 Hrs of Labs/Robert: Laboratory Tests 11/28/17 1300: Anion Gap 19 H, Estimated GFR 3 L, BUN/Creatinine Ratio 8.3, Glucose 145 H, Calcium 8.2 L, PT 22.0 H, INR 2.00 H, CBC w Diff NO MAN DIFF REQ, RBC 3.70 L , MCV 94.1, MCH 30.7, MCHC 32.6 L, RDW 18.4 H, MPV 9.5, Gran % 57.4, Lymphocytes % 28.0, Monocytes % 10.2 H, Eosinophils % 4.1, Basophils % 0.3, Absolute Granulocytes 3.4, Absolute Lymphocytes 1.7, Absolute Monocytes 0.6, Absolute Eosinophils 0.2, Absolute Basophils 0 Assessment/Plan Assessment: Ms. Franklin is a 66-year-old female past medical history of hypertension, hyperlipidemia, TIARA, end-stage renal disease on hemodialysis, diabetes was, and anemia comes in for dialysis. On presentation, vital signs were T 98.8, HR 80, RR 18, BP 105/61, saturating 90 % on room air. Temperature significant for hemoglobin 11.4, potassium 5.8, come dioxide 20, BUN 98, creatinine 11.8, INR 2.00. She'll be admitted to general medicine and treated for the following problems: 1. End-stage renal disease on hemodialysis 2. Hyperkalemia 3. Dyspnea #End-stage renal disease on hemodialysis: Patient will be nothing by mouth after midnight and get a temporary IJ in the morning with interventional radiology. She'll need to be off the warfarin for 3 days more to get a new fistula. -Nephrology consult -Nothing by mouth after midnight -Hold warfarin -Kayexalate, follow potassium #Dyspnea: Unclear etiology. Patient does not have history of asthma or COPD. it is possible that the patient is developing a pulmonary embolus given her history of clotting. -Chest x-ray -D-dimer -Consider V/Q in the AM and/or starting heparin if there is high clinical suspicion of PE #Chronic medical problem: -Patient does not know home meds. Reconcile medications with pharmacy in the morning [facility] in [place] DVT prophylaxis with Alps Consistent carbohydrate 2 diet Full code As Ranked By This Provider Problem List: 1. Dialysis AV fistula malfunction Core Measures/Misc (02/10) Acute Coronary Syndrome ACS Diagnosis: No Congestive Heart Failure Congestive Heart Failure Diagnosis No Cerebrovascular Accident CVA/TIA Diagnosis: No VTE (View Protocol) VTE Risk Factors Age>40 No Mechanical VTE Prophylaxis d/t N/A MechProphylax Ordered No VTE Pharm Prophylaxis d/t Surgical Contraindication Sepsis (View protocol) Sepsis Present: No If YES complete Sepsis Event Note If YES complete Sepsis Event Note Martín Morgan MD 11/28/17 2211: Core Measures/Misc (02/10) Sepsis (View protocol) If YES complete Sepsis Event Note If YES complete Sepsis Event Note Attending MD Review Statement Attending Statement Attending MD Statement: examined this patient, discuss w/resident/PA/BUDDHIST MONK, agreed w/resident/PA/BUDDHIST MONK, reviewed EMR data (avail), amended to note Attending Assessment/Plan: The patient is a 66 yo female with/o DM2, blindness, HTN, HL, TIARA, chronic anemia, ESRD on dialysis who presented in the ED after being referred from [facility] and the [facility] dialysis center after her access was noted to be clotted. She has a h/o numerous fistulograms with declots for clotted accesses. She has had recurrent thrombosis in spite of anticoagulation. She is on Coumadin therapy with a therapeutic INR of 2.0. In the ED K is 5.8. She denied any chest pain, nausea, dyspnea, abdominal pain, fever, diarrhea/nausea. Will need admission for Kandi Cath, reversal of anticoagulation. Physical Exam: VS: T 98.8, P 88, R 18, BP 105/61, PO 98% HEENT: eyes- blind senthil- moist mucosa Neck: no JVD/bruits Chest: clear Cor: RRR nl S1, S2 w/o murm Abd: BS+, soft, NT Ext: No edema, pulses 1+ Neuro: alert & oriented, non-focal (gait not tested) Labs/Tests as above. Impression/Plan: #ESRD on Dialysis- unable to dialyze yesterday or today due to lack of access ( clotted). Plan: Will reverse coumadin with po Vitamin K- may need FFP tomorrow. IR tomorrow for tunnelled catheter. NPO in morning anticipating. #Hyperkalemia- EKG is normal. Given Kayexalate in ED. Plan: Admit to medical floor. If K not improving may need telemetry. #DM2- on insulin. Plan: Continue insulin and follow sugars. #HTN- BP was initially low and came up when in ED. Plan: Continue Losartan/Amlodipine. #Hyperlipidemia- on Atorvastatin. Plan: Continue Atorvastatin. #Diabetic Neuropathy- on Gabapentin. Plan: Continue Gabapentin. #Coagulopathy- on Coumadin. Plan: Vitamin K po given- may need FFP in morning need INR < 1.5 for catheter placement.
--- NOTE | 2017-11-28 19:53 | RADIOLOGY REPORT ---
EXAMINATION: XR CHEST CLINICAL INFORMATION: Shortness of breath. COMPARISON: CT dated 05/09/2017 and radiograph dated 02/01/2017 TECHNIQUE: 2 views of the chest were obtained. FINDINGS: Vascular stents are present in the axillary and brachial regions bilaterally. The left brachial stent appears compressed. Cardiac silhouette is within normal limits in size. Pulmonary vasculature is normal. Mediastinal contour is normal. Lungs are clear. No consolidation, pneumothorax, or pleural effusion. No acute osseous abnormalities. There is an old healed left humeral neck fracture. IMPRESSION: No acute pulmonary findings.
[2017-11-28 20:00] VITALS: BP 138/70
--- NOTE | 2017-11-28 22:28 | Admission Certification ---
Admission Certification Certification Statement - As attending physician, I certify that at the time of - admission, based on clinical presentation, severity of - symptoms, need for further diagnostic testing and - therapeutic interventions, and risk of adverse outcomes - without in-hospital treatment, in my clinical assessment, - this patient requires an acute hospital stay for a minimum - of two nights or longer. I have also considered psychsocial - factors such as support system, advanced age, financial - issues, cognitive issues, and failed out-patient treatments, - past re-admission history, safety of patient, and lack of - compliance as applicable. Specific rationale supporting this admission is: The patient has chronic renal failure and is dialysis dependent. Access has clotted and unable to have dialysis yesterday or today. Needs admit to have anti -coagulation reveresed and tunnel catheter placement by IR. Hyperkalemia being treated with Kayexalate.
[2017-11-29 06:20] VITALS: BP 116/68
--- NOTE | 2017-11-29 08:00 | PN- Housestaff ---
See Addendum Subjective Follow-up For: [facility] MISSED RENAL DIALYSIS 2/2 AV FISTULA MALFUNCTION Complaints: SLIGHT SOB OVERNIGHT Subjective: Patient reports slight SOB overnight that was relieved with sitting up in bed. Denies n/v/d, chest pain, fever, chills. Review of Systems Constitutional: Reports: see HPI. Objective Last 24 Hrs of Vital Signs/I&O Vital Signs Date Time Temp Pulse Resp B/P B/P Pulse O2 O2 Flow FiO2 Mean Ox Delivery Rate 11/30 619 98.1 63 18 116/68 96 Room Air 11/28 2010 98 Room Air 11/29 1999 97.8 75 18 138/70 100 Nasal 2.0L Cannula 11/28 1930 99 Nasal 2.0L Cannula 11/28 1803 68 18 174/77 100 Nasal 2.0L Cannula 11/28 1440 70 18 149/67 100 Nasal 2.0L Cannula 11/28 1333 98 Nasal 2.0L Cannula 11/28 1333 71 18 154/72 89 Room Air 11/28 1226 Room Air Intake & Output 11/29 1600 11/29 0800 11/29 0000 Intake Total 50 100 Output Total Balance 50 100 Intake, IV 50 Intake, Oral 100 Patient 180 lb 180 lb Weight Weight Bed scale Measurement Method Physical Exam General Appearance: Alert, Oriented X3, Cooperative, No Acute Distress Skin: No Rashes Skin Temp/Moisture Exam: Warm/Dry HEENT: Atraumatic, PERRLA Neck: Supple Cardiovascular: Regular Rate, Normal S1, Normal S2 Lungs: Clear to Auscultation, Normal Air Movement Abdomen: Normal Bowel Sounds, Soft, No Tenderness Extremities: No Edema, BUE with previous AV fistulas; non functional Assessment/Plan Assessment: 66 year old female with PMH end stage renal disease on HD, DM, HTN, HLD, TIARA admitted 2/2 clotted AV fistula and unable to receive dialysis. Her HD schedule is usually MWF. She has remained asymptomatic but does reports mild SOB that is chronic. She was admitted to the general medicine floor for ELLIS catheter placement. In the meantime, she will have a temporary access placed into Left IJ. #End stage renal disease on HD -IR temporary left IJ access today -Vit K given to decrease INR of 2.0 at admission 2/2 warfarin -Nephrology consulted and following with recs: continued off warfarin -ELLIS catheter placement on Saturday; NPO Saturday night after MN #Dyspnea -Continue to monitor sats -CXR shows no acute findings #Chronic illnesses -continue home medications DVT prophylaxis: alps Problem List: 1. End stage kidney disease Pain Ratin Pain Location: none Pain Goal: Remain pain free Pain Plan: see a/p Tomorrow's Labs & Rationales: cbc, bep, mg, phos
[2017-11-29 14:26] VITALS: BP 130/60
[2017-11-29 14:45] LABS: ABSOLUTE BASOPHIL COUNT 0 /CUMM (0.0-0.2); ABSOLUTE EOSINOPHIL COUNT 0.2 /CUMM (0.0-0.7); ABSOLUTE GRANULOCYTE CT 3.4 /CUMM (1.4-6.5); ABSOLUTE LYMPH COUNT 1.7 /CUMM (1.2-3.4); ABSOLUTE MONOCYTE COUNT 0.5 /CUMM (0.10-0.60); BASOPHIL % 0.7 % (0.0-2.0); EOSINOPHIL % 3.6 % (0-5); GRANULOCYTE % 57.2 % (42.2-75.2); HEMATOCRIT 33.9 % (37-47); MEAN CORPUSCULAR VOLUME 93.7 FL (81.0-99.0); MEAN PLATELET VOLUME 9.9 FL (7.4-10.4); PLATELET COUNT 208 /CUMM (130-400); RBC DISTRIBUTION WIDTH 18.5 % (11.5-14.5); RED BLOOD CELL CT 3.62 /CUMM (4.20-5.40); WHITE BLOOD CELL COUNT 5.9 /CUMM (4.8-10.8)
[2017-11-29 14:51] LABS: PT 19.9 SEC (9.4-12.5)
--- NOTE | 2017-11-29 14:59 | PN- Nephrology ---
Assessment/Plan Nephrology Assessment: ESRD: HD today & again tomorrow to get her 3rd treatment of the week (she was unable to be dialzyed on saturday). She will also have HD in AM on saturday, prior to 11:30 change of polly cath to an FCO cath. Clotted AV grafts: I spoke in detail with her vascular surgeon Stan Almeida MD. Unfortunately he feels that the axis is in salvageable as every single attempt for fistulogram with declots has only been very transiently successful and she's had recurrent episodes of thrombosis requiring innumerable declots. At this point would keep off anticoagulation (which she was on for access patency, however, clearly was ineffective), & she will need an Fco catheter placed and continue on hemodialysis via a chronic Fco catheter. I did speak with the patient about the possibility of peritoneal dialysis however, blindness prevents her from being able to do peritoneal dialysis on her own. In order to transition peritoneal dialysis she would need to live in a long-term longterm with the nurses are trained in PD, or one of her family members would need to take on the responsibility 100%. I met with her and son this afternoon and encouraged them to consider peritoneal dialysis. Upon discharge I asked them to contact our home dialysis team at [phone] to further discuss PD. . Suggestion: HD today in process labs pending--> f/up keep off coumadin & all anticoagulants HD again tomorrow HD again saturday AM plan for FCO cath on saturday at 11:30 AM per IR NPO at midnight saturday night family informed about option of PD and showing interest; as above to f/up with our PD clinic upon discharge to see if they want to go that direction. Subjective Subjective: s/p temporary polly cath this AM labs were not rechecked this AM some oozing via the catheter noted seen on HD this afternoon Review of Systems: no fever/chills no sob/chest pain Objective Vital Signs and I&Os Vital Signs Date Time Temp Pulse Resp B/P B/P Pulse O2 O2 Flow FiO2 Mean Ox Delivery Rate 11/29 1426 98.3 78 18 130/60 95 11/29 0620 98.1 63 18 116/68 96 Room Air 11/28 2010 98 Room Air 11/29 1999 97.8 75 18 138/70 100 Nasal 2.0L Cannula 07/05 1930 99 Nasal 2.0L Cannula 11/28 1803 68 18 174/77 100 Nasal 2.0L Cannula Intake & Output 11/29 04011/28 1600 11/28 04011/27 0400 Intake Total 250 100 Output Total Balance 250 100 Intake, IV 50 Intake, Oral 200 100 Patient 180 lb 180 lb 170 lb Weight Weight Bed scale Reported by Patient Measurement Method Physical Exam: General: NAD, A+O x3. HEENT: NC/AT. No icterus. Blind. CV: RRR, no m/r/g Pulm: CTAB, no rales Abd: soft, NT/ND, negative renal bruits Lower Ext: neg edema or chronic venous changes Upper Ext: Old LUE AVG no thrill/bruit. 2 RUE AVGs-> no thrill/bruit in either Neuro: neg tremor, asterixis Skin: no rash, jaundice : no isaac catheter Current Medications: Current Medications Sig/Aurelio Start time Last Medication Dose Route Stop Time Status Admin Amlodipine Besylate 10 MG DAILY 11/29 899 AC PO Atorvastatin Calcium 10 MG 1700 11/29 1700 AC PO Cholecalciferol 1,000 IU DAILY 11/29 899 AC PO Dextrose 25 GM .STK-MED ONE 11/29 1415 DC IV 11/29 1416 Dextrose 25 GM ONCE ONE 11/29 0515 DC 11/29 IV 11/29 0516 0510 Dipyridamole/Aspirin 1 CAP BID 11/28 2100 CAN PO Gabapentin 300 MG TID PRN 11/28 1845 AC PO Heparin Sodium 0 .STK-MED ONE 11/29 834 DC (Porcine) IV Insulin Aspart 0 TIDAC 11/29 08 CAN SC Insulin Detemir 6 UNITS QPM 11/28 2100 AC 11/28 SC 2049 Insulin Human Regular 0 Q6 11/29 0002 AC 11/29 SC 0018 Lidocaine 0 .STK-MED ONE 11/29 834 DC .ROUTE Lidocaine/Epinephrine 0 .STK-MED ONE 11/29 834 DC .ROUTE Losartan Potassium 25 MG DAILY 11/29 899 AC PO Multivitamins 1 TAB DAILY 11/29 899 AC PO Phytonadione 10 MG ONCE ONE 11/28 1730 CAN IM 11/28 1731 Phytonadione 10 MG ONCE ONE 11/28 1730 DC 11/28 PO 11/28 1731 1807 Senna/Docusate Sodium 2 TAB AT BEDTIME 11/28 2100 AC 11/28 PO 2049 Sodium Polystyrene 0 .STK-MED ONE 11/28 1611 DC Sulfonate .ROUTE Sodium Polystyrene 60 ML ONCE ONE 11/28 1600 DC 11/28 Sulfonate PO 11/28 1601 1621 Results Pertinent Lab Results: Laboratory Tests 11/29 11/29 11/29 1300 1200 0500 Chemistry Sodium Pending Potassium Pending Chloride Pending Carbon Dioxide Pending Anion Gap Pending BUN Pending Creatinine Pending BUN/Creatinine Ratio Pending Glucose Cancelled Pending Calcium Cancelled Pending Coagulation PT Pending INR Pending Hematology CBC w Diff NO MAN DIFF REQ Cancelled WBC (4.8 - 10.8 /CUMM) 5.9 Cancelled RBC (4.20 - 5.40 /CUMM) 3.62 L Cancelled Hgb (12.0 - 16.0 G/DL) 10.9 L Cancelled Hct (37 - 47 %) 33.9 L Cancelled MCV (81.0 - 99.0 FL) 93.7 Cancelled MCH (27.0 - 31.0 PG) 30.0 Cancelled MCHC (33.0 - 37.0 G/DL) 32.0 L Cancelled RDW (11.5 - 14.5 %) 18.5 H Cancelled Plt Count (130 - 400 /CUMM) 208 Cancelled MPV (7.4 - 10.4 FL) 9.9 Cancelled Gran % (42.2 - 75.2 %) 57.2 Lymphocytes % (20.5 - 51.1 %) 29.4 Monocytes % (1.7 - 9.3 %) 9.1 Eosinophils % (0 - 5 %) 3.6 Basophils % (0.0 - 2.0 %) 0.7 Absolute Granulocytes (1.4 - 6.5 /CUMM) 3.4 Absolute Lymphocytes (1.2 - 3.4 /CUMM) 1.7 Absolute Monocytes (0.10 - 0.60 /CUMM) 0.5 Absolute Eosinophils (0.0 - 0.7 /CUMM) 0.2 Absolute Basophils (0.0 - 0.2 /CUMM) 0 11/28 11/28 1545 1300 Chemistry Sodium (137 - 145 mmol/L) Cancelled 137 Potassium (3.5 - 5.1 mmol/L) Cancelled 5.8 H Chloride (98 - 107 mmol/L) Cancelled 98 Carbon Dioxide (22 - 30 mmol/L) Cancelled 20 L Anion Gap (5 - 16) Cancelled 19 H BUN (7 - 17 mg/dL) Cancelled 98 H Creatinine (0.5 - 1.0 mg/dL) Cancelled 11.8 *H Estimated GFR (>60 ml/min) 3 L BUN/Creatinine Ratio (7 - 25 %) Cancelled 8.3 Glucose (65 - 99 mg/dL) Cancelled 145 H Calcium (8.4 - 10.2 mg/dL) Cancelled 8.2 L Coagulation PT (9.4 - 12.5 SEC) 22.0 H INR (0.90 - 1.19) 2.00 H D-Dimer High Sensitivty (0 - 243 ng/ml) 543 H Hematology CBC w Diff NO MAN DIFF REQ WBC (4.8 - 10.8 /CUMM) 5.9 RBC (4.20 - 5.40 /CUMM) 3.70 L Hgb (12.0 - 16.0 G/DL) 11.4 L Hct (37 - 47 %) 34.8 L MCV (81.0 - 99.0 FL) 94.1 MCH (27.0 - 31.0 PG) 30.7 MCHC (33.0 - 37.0 G/DL) 32.6 L RDW (11.5 - 14.5 %) 18.4 H Plt Count (130 - 400 /CUMM) 221 MPV (7.4 - 10.4 FL) 9.5 Gran % (42.2 - 75.2 %) 57.4 Lymphocytes % (20.5 - 51.1 %) 28.0 Monocytes % (1.7 - 9.3 %) 10.2 H Eosinophils % (0 - 5 %) 4.1 Basophils % (0.0 - 2.0 %) 0.3 Absolute Granulocytes (1.4 - 6.5 /CUMM) 3.4 Absolute Lymphocytes (1.2 - 3.4 /CUMM) 1.7 Absolute Monocytes (0.10 - 0.60 /CUMM) 0.6 Absolute Eosinophils (0.0 - 0.7 /CUMM) 0.2 Absolute Basophils (0.0 - 0.2 /CUMM) 0
--- NOTE | 2017-11-29 16:16 | ULTRASOUND REPORT ---
PROCEDURE: ULTRASOUND AND FLUOROSCOPICALLY GUIDED LEFT EXTERNAL JUGULAR VEIN TEMPORARY NONTUNNELED HEMODIALYSIS CATHETER PLACEMENT INTERVENTIONAL RADIOLOGIST: Rupesh Walker M.D. CLINICAL HISTORY: 66-year-old female with renal failure and nonfunctioning fistulas. Request made for placement of hemodialysis catheter. COMPARISON: Chest x-ray 11/28/[address] 05/09/2017 MEDICATION: 1% lidocaine was used for local anesthetic. FLUOROSCOPY TIME: 1.3 minutes NUMBER OF IMAGES: 4 images TECHNIQUE: Informed consent was obtained from the patient prior to the procedure. During this process, the procedure and potential alternatives were explained along with the intended outcome and benefits. The risks of the procedure, including the possibility of an unsuccessful procedure, as well as the risk of not doing the procedure were discussed. The patient was given the opportunity to ask questions regarding the procedure and appeared competent to make medical decisions. A consent form which documents this discussion was placed in the medical record. A timeout procedure was performed. Following informed consent the patient was placed supine on the fluoroscopic table. The left neck and chest were prepped and draped in usual sterile fashion. All elements of maximal sterile barrier technique were followed including use of cap, mask, sterile gown, sterile gloves, a sterile full body drape and hand hygiene. The skin was prepared with 2% chlorhexidine for cutaneous antisepsis and sterile ultrasound preparation with sterile gel and probe cover was performed when applicable. Initial ultrasound evaluation failed to identify the left internal jugular vein. Given this patient's numerous prior catheters, this vein is likely atrophic and occluded. The left external jugular vein was compressible. Ultrasound was utilized to assess the vascular structures for access. A puncture into the left external jugular vein was performed with a Micro-Stick system. The wire was advanced into the IVC to confirm venous placement. Over the wire dilatation was performed and a temporary nontunneled hemodialysis catheter was advanced over the wire. Catheter terminates in the high right atrium. Silk suture was utilized for catheter securement. The patient tolerated the procedure well. The patient was transferred back to the floor in stable condition. ULTRASOUND-GUIDED VASCULAR ACCESS: Ultrasound was used to identify the left external jugular vein. The left external jugular vein was confirmed to be patent. Real time imaging confirmed needle access into the left external jugular vein. An image was saved for permanent recording in PACS. IMPRESSION: Successful placement of temporary hemodialysis catheter via the left external jugular vein.
[2017-11-29 21:44] VITALS: BP 122/60
[2017-11-30 06:17] VITALS: BP 102/60
[2017-11-30 11:12] LABS: ABSOLUTE BASOPHIL COUNT 0 /CUMM (0.0-0.2); ABSOLUTE EOSINOPHIL COUNT 0.2 /CUMM (0.0-0.7); ABSOLUTE GRANULOCYTE CT 3.5 /CUMM (1.4-6.5); ABSOLUTE LYMPH COUNT 0.8 /CUMM (1.2-3.4); ABSOLUTE MONOCYTE COUNT 0.6 /CUMM (0.10-0.60); BASOPHIL % 0.5 % (0.0-2.0); EOSINOPHIL % 3.2 % (0-5); GRANULOCYTE % 68.1 % (42.2-75.2); HEMATOCRIT 33.6 % (37-47); MEAN CORPUSCULAR HGB 30.6 PG (27.0-31.0); MEAN CORPUSCULAR HGB CONC 32.8 G/DL (33.0-37.0); MEAN CORPUSCULAR VOLUME 93.5 FL (81.0-99.0); MEAN PLATELET VOLUME 9.8 FL (7.4-10.4); PLATELET COUNT 207 /CUMM (130-400); RBC DISTRIBUTION WIDTH 18.7 % (11.5-14.5); WHITE BLOOD CELL COUNT 5.1 /CUMM (4.8-10.8)
[2017-11-30 11:19] LABS: PT 13.5 SEC (9.4-12.5)
--- NOTE | 2017-11-30 13:46 | PN- Nephrology ---
Assessment/Plan Nephrology Assessment: ESRD: Was dialyzed today to get her 3rd treatment of the week (she was unable to be dialzyed on saturday). She will also have HD in AM on saturday, prior to 11: 30 change of jayesh cath to an FCO cath. Clotted AV grafts: I spoke in detail with her vascular surgeon Stan Almeida MD. Unfortunately he feels that the axis is in salvageable as every single attempt for fistulogram with declots has only been very transiently successful and she's had recurrent episodes of thrombosis requiring innumerable declots. At this point would keep off anticoagulation (which she was on for access patency, however, clearly was ineffective), & she will need an Fco catheter placed and continue on hemodialysis via a chronic Fco catheter. I did speak with the patient about the possibility of peritoneal dialysis however, blindness prevents her from being able to do peritoneal dialysis on her own. In order to transition peritoneal dialysis she would need to live in a long-term snf with the nurses are trained in PD, or one of her family members would need to take on the responsibility 100%. I met with her and son this afternoon and encouraged them to consider peritoneal dialysis. Upon discharge I asked them to contact our home dialysis team at [phone] to further discuss PD. . Suggestion: keep off coumadin & all anticoagulants HD again saturday AM plan for FCO cath on saturday at 11:30 AM per IR NPO at midnight saturday night family informed about option of PD and showing interest; as above to f/up with our PD clinic upon discharge to see if they want to go that direction. Subjective Subjective: Had dialysis yesterday She had dialysis again today to make up for the missed treatment on Saturday Potassium improved to 5.1 prior to dialysis today Patient has no other complaints She was dialyzed via the temporary Jayesh catheter as we await Saturday's Fco catheter INR down to 1.2 Review of Systems: Denies fever or chills No further bleeding from the Jayesh cath No chest pain or shortness of breath Objective Vital Signs and I&Os Vital Signs Date Time Temp Pulse Resp B/P B/P Pulse O2 O2 Flow FiO2 Mean Ox Delivery Rate 11/30 0944 71 114/60 11/30 0940 71 114/60 11/30 0617 98.1 73 20 102/60 96 Room Air 11/29 2144 97.2 76 18 122/60 96 / 1807 75 118/60 11/29 1806 75 118/60 / 1426 98.3 78 18 130/60 95 Intake & Output 11/30 0400 11/29 1600 11/29 0400 11/28 1600 11/28 0400 Intake Total 0 100 420 100 Output Total Balance 0 100 420 100 Intake, IV 60 Intake, Oral 0 100 360 100 Number 1 Bowel Movements Patient 187 lb 180 lb 180 lb 170 lb Weight Weight Bed scale Reported by Patient Measurement Method Physical Exam: General: NAD, A+O x3. HEENT: NC/AT. No icterus. Blind. CV: RRR, no m/r/g Pulm: CTAB, no rales Abd: soft, NT/ND, negative renal bruits Lower Ext: neg edema or chronic venous changes Upper Ext: Old LUE AVG no thrill/bruit. 2 RUE AVGs-> no thrill/bruit in either Neuro: neg tremor, asterixis Skin: no rash, jaundice : no isaac catheter Current Medications: Current Medications Sig/Aurelio Start time Last Medication Dose Route Stop Time Status Admin Amlodipine Besylate 10 MG DAILY 11/29 899 AC PO Atorvastatin Calcium 10 MG 1700 11/29 1700 AC 11/29 PO 1806 Calcitriol 1 MCG ONCE PRN 12/01 799 AC IV Calcitriol 1 MCG MoWeFr PRN 11/29 1500 AC IV Cholecalciferol 1,000 IU DAILY 11/29 899 AC 11/30 PO 0939 Dextrose 25 GM .STK-MED ONE 11/29 1415 DC IV 11/29 1416 Epoetin Genaro 6,000 UNIT ONCE PRN 11/30 08 AC SC Epoetin Genaro 6,000 UNIT MoWeFr PRN 11/29 1500 AC SC Gabapentin 300 MG TID PRN 11/28 1845 AC 11/29 PO 2142 Gelatin 1 UNIT ONE ONE 11/29 1845 DC TOP 11/29 184 Insulin Detemir 6 UNITS QPM 11/28 2100 AC 11/29 SC 2146 Insulin Human Regular 0 Q6 11/29 0002 AC 11/30 SC 0000 Losartan Potassium 25 MG DAILY 11/29 899 AC PO Multivitamins 1 TAB DAILY 11/29 899 AC 11/30 PO 0939 Senna/Docusate Sodium 2 TAB AT BEDTIME 11/28 2100 AC 11/29 PO 2141 Results Pertinent Lab Results: Laboratory Tests 11/30 11/30 1005 0600 Chemistry Sodium (137 - 145 mmol/L) 137 Cancelled Potassium (3.5 - 5.1 mmol/L) 5.1 Cancelled Chloride (98 - 107 mmol/L) 96 L Cancelled Carbon Dioxide (22 - 30 mmol/L) 25 Cancelled Anion Gap (5 - 16) 16 Cancelled BUN (7 - 17 mg/dL) 68 H Cancelled Creatinine (0.5 - 1.0 mg/dL) 9.7 *H Cancelled Estimated GFR (>60 ml/min) 4 L BUN/Creatinine Ratio (7 - 25 %) 7.0 Cancelled Glucose (65 - 99 mg/dL) 143 H Calcium (8.4 - 10.2 mg/dL) 8.8 Coagulation PT (9.4 - 12.5 SEC) 13.5 H INR (0.90 - 1.19) 1.24 H Hematology CBC w Diff NO MAN DIFF REQ WBC (4.8 - 10.8 /CUMM) 5.1 RBC (4.20 - 5.40 /CUMM) 3.60 L Hgb (12.0 - 16.0 G/DL) 11.0 L Hct (37 - 47 %) 33.6 L MCV (81.0 - 99.0 FL) 93.5 MCH (27.0 - 31.0 PG) 30.6 MCHC (33.0 - 37.0 G/DL) 32.8 L RDW (11.5 - 14.5 %) 18.7 H Plt Count (130 - 400 /CUMM) 207 MPV (7.4 - 10.4 FL) 9.8 Gran % (42.2 - 75.2 %) 68.1 Lymphocytes % (20.5 - 51.1 %) 16.4 L Monocytes % (1.7 - 9.3 %) 11.8 H Eosinophils % (0 - 5 %) 3.2 Basophils % (0.0 - 2.0 %) 0.5 Absolute Granulocytes (1.4 - 6.5 /CUMM) 3.5 Absolute Lymphocytes (1.2 - 3.4 /CUMM) 0.8 L Absolute Monocytes (0.10 - 0.60 /CUMM) 0.6 Absolute Eosinophils (0.0 - 0.7 /CUMM) 0.2 Absolute Basophils (0.0 - 0.2 /CUMM) 0 11/29 07 07/ 1300 1200 0500 Chemistry Sodium (137 - 145 mmol/L) 137 Potassium (3.5 - 5.1 mmol/L) 5.3 H Chloride (98 - 107 mmol/L) 95 L Carbon Dioxide (22 - 30 mmol/L) 21 L Anion Gap (5 - 16) 21 H BUN (7 - 17 mg/dL) 109 *H Creatinine (0.5 - 1.0 mg/dL) 12.7 *H Estimated GFR (>60 ml/min) 3 L BUN/Creatinine Ratio (7 - 25 %) 8.6 Glucose (65 - 99 mg/dL) Cancelled 152 H Calcium (8.4 - 10.2 mg/dL) Cancelled 7.9 L Coagulation PT (9.4 - 12.5 SEC) 19.9 H INR (0.90 - 1.19) 1.81 H Hematology CBC w Diff NO MAN DIFF REQ Cancelled WBC (4.8 - 10.8 /CUMM) 5.9 Cancelled RBC (4.20 - 5.40 /CUMM) 3.62 L Cancelled Hgb (12.0 - 16.0 G/DL) 10.9 L Cancelled Hct (37 - 47 %) 33.9 L Cancelled MCV (81.0 - 99.0 FL) 93.7 Cancelled MCH (27.0 - 31.0 PG) 30.0 Cancelled MCHC (33.0 - 37.0 G/DL) 32.0 L Cancelled RDW (11.5 - 14.5 %) 18.5 H Cancelled Plt Count (130 - 400 /CUMM) 208 Cancelled MPV (7.4 - 10.4 FL) 9.9 Cancelled Gran % (42.2 - 75.2 %) 57.2 Lymphocytes % (20.5 - 51.1 %) 29.4 Monocytes % (1.7 - 9.3 %) 9.1 Eosinophils % (0 - 5 %) 3.6 Basophils % (0.0 - 2.0 %) 0.7 Absolute Granulocytes (1.4 - 6.5 /CUMM) 3.4 Absolute Lymphocytes (1.2 - 3.4 /CUMM) 1.7 Absolute Monocytes (0.10 - 0.60 /CUMM) 0.5 Absolute Eosinophils (0.0 - 0.7 /CUMM) 0.2 Absolute Basophils (0.0 - 0.2 /CUMM) 0 11/28 07 1545 1300 Chemistry Sodium (137 - 145 mmol/L) Cancelled 137 Potassium (3.5 - 5.1 mmol/L) Cancelled 5.8 H Chloride (98 - 107 mmol/L) Cancelled 98 Carbon Dioxide (22 - 30 mmol/L) Cancelled 20 L Anion Gap (5 - 16) Cancelled 19 H BUN (7 - 17 mg/dL) Cancelled 98 H Creatinine (0.5 - 1.0 mg/dL) Cancelled 11.8 *H Estimated GFR (>60 ml/min) 3 L BUN/Creatinine Ratio (7 - 25 %) Cancelled 8.3 Glucose (65 - 99 mg/dL) Cancelled 145 H Calcium (8.4 - 10.2 mg/dL) Cancelled 8.2 L Coagulation PT (9.4 - 12.5 SEC) 22.0 H INR (0.90 - 1.19) 2.00 H D-Dimer High Sensitivty (0 - 243 ng/ml) 543 H Hematology CBC w Diff NO MAN DIFF REQ WBC (4.8 - 10.8 /CUMM) 5.9 RBC (4.20 - 5.40 /CUMM) 3.70 L Hgb (12.0 - 16.0 G/DL) 11.4 L Hct (37 - 47 %) 34.8 L MCV (81.0 - 99.0 FL) 94.1 MCH (27.0 - 31.0 PG) 30.7 MCHC (33.0 - 37.0 G/DL) 32.6 L RDW (11.5 - 14.5 %) 18.4 H Plt Count (130 - 400 /CUMM) 221 MPV (7.4 - 10.4 FL) 9.5 Gran % (42.2 - 75.2 %) 57.4 Lymphocytes % (20.5 - 51.1 %) 28.0 Monocytes % (1.7 - 9.3 %) 10.2 H Eosinophils % (0 - 5 %) 4.1 Basophils % (0.0 - 2.0 %) 0.3 Absolute Granulocytes (1.4 - 6.5 /CUMM) 3.4 Absolute Lymphocytes (1.2 - 3.4 /CUMM) 1.7 Absolute Monocytes (0.10 - 0.60 /CUMM) 0.6 Absolute Eosinophils (0.0 - 0.7 /CUMM) 0.2 Absolute Basophils (0.0 - 0.2 /CUMM) 0
[2017-11-30 14:26] VITALS: BP 120/80
--- NOTE | 2017-11-30 18:11 | PN- Att Addend ---
Attending Addendum Attending Brief Note 66F PMH DM2, blindness, HTN, HL, TIARA, chronic anemia, ESRD on dialysis admitted with clogged dialysis access. Has a history of failed LUE AV-graft, and RUE graft that has history of multiple episodes of clotting while on first ASA, then Plavix, now Coumadin. LIJ dialysis catheter placed by IR on 11/29 and underwent dialysis. No complaints, feeling well, K 5.1, BUN 68, INR 1.24 after being given Vitamin K. 13-point ROS negative AFVSS NAD NCAT Supple MMM RRR CTAB SOft, NTND No c/c/e Pulses intact A&Ox3 no focal deficits Current Medications Sig/Aurelio Start time Last Medication Dose Route Stop Time Status Admin Amlodipine Besylate 10 MG DAILY 11/29 0900 AC PO Atorvastatin Calcium 10 MG 1700 11/29 1700 AC 11/30 PO 1722 Calcitriol 1 MCG ONCE PRN 11/30 08 AC IV Calcitriol 1 MCG MoWeFr PRN 11/29 1500 AC IV Cholecalciferol 1,000 IU DAILY 11/29 09 AC 11/30 PO 0939 Epoetin Genaro 6,000 UNIT ONCE PRN 11/30 0800 AC SC Epoetin Genaro 6,000 UNIT MoWeFr PRN 11/29 1500 AC SC Gabapentin 300 MG TID PRN 11/28 1845 AC 11/29 PO 2142 Gelatin 1 UNIT ONE ONE 11/29 1845 DC TOP 11/29 1846 Insulin Aspart 0 TIDAC 11/30 1700 AC 11/30 SC 1723 Insulin Detemir 6 UNITS QPM 11/28 2100 11/29 SC 2146 Insulin Human Regular 0 TIDAC 11/30 1700 CAN SC Insulin Human Regular 0 Q6 11/29 0002 DC 11/30 HI 0000 Losartan Potassium 25 MG DAILY 11/29 09 AC PO Multivitamins 1 TAB DAILY 11/29 09 AC 11/30 PO 0939 Senna/Docusate Sodium 2 TAB AT BEDTIME 11/28 2100 AC 11/29 PO 2141 Laboratory Tests 11/30 11/30 1005 0600 Chemistry Sodium (137 - 145 mmol/L) 137 Cancelled Potassium (3.5 - 5.1 mmol/L) 5.1 Cancelled Chloride (98 - 107 mmol/L) 96 L Cancelled Carbon Dioxide (22 - 30 mmol/L) 25 Cancelled Anion Gap (5 - 16) 16 Cancelled BUN (7 - 17 mg/dL) 68 H Cancelled Creatinine (0.5 - 1.0 mg/dL) 9.7 *H Cancelled Estimated GFR (>60 ml/min) 4 L BUN/Creatinine Ratio (7 - 25 %) 7.0 Cancelled Glucose (65 - 99 mg/dL) 143 H Calcium (8.4 - 10.2 mg/dL) 8.8 Coagulation PT (9.4 - 12.5 SEC) 13.5 H INR (0.90 - 1.19) 1.24 H Hematology CBC w Diff NO MAN DIFF REQ Cancelled WBC (4.8 - 10.8 /CUMM) 5.1 Cancelled RBC (4.20 - 5.40 /CUMM) 3.60 L Cancelled Hgb (12.0 - 16.0 G/DL) 11.0 L Cancelled Hct (37 - 47 %) 33.6 L Cancelled MCV (81.0 - 99.0 FL) 93.5 Cancelled MCH (27.0 - 31.0 PG) 30.6 Cancelled MCHC (33.0 - 37.0 G/DL) 32.8 L Cancelled RDW (11.5 - 14.5 %) 18.7 H Cancelled Plt Count (130 - 400 /CUMM) 207 Cancelled MPV (7.4 - 10.4 FL) 9.8 Cancelled Gran % (42.2 - 75.2 %) 68.1 Lymphocytes % (20.5 - 51.1 %) 16.4 L Monocytes % (1.7 - 9.3 %) 11.8 H Eosinophils % (0 - 5 %) 3.2 Basophils % (0.0 - 2.0 %) 0.5 Absolute Granulocytes (1.4 - 6.5 /CUMM) 3.5 Absolute Lymphocytes (1.2 - 3.4 /CUMM) 0.8 L Absolute Monocytes (0.10 - 0.60 /CUMM) 0.6 Absolute Eosinophils (0.0 - 0.7 /CUMM) 0.2 Absolute Basophils (0.0 - 0.2 /CUMM) 0 Vital Signs Date Time Temp Pulse Resp B/P B/P Pulse O2 O2 Flow FiO2 Mean Ox Delivery Rate 11/30 1426 98.2 83 22 120/80 98 07/07 0944 71 114/60 11/30 0940 71 114/60 11/30 0617 98.1 73 20 102/60 96 Room Air 11/29 2144 97.2 76 18 122/60 96 Intake & Output 11/30 1600 11/30 0800 11/30 0000 Intake Total 0 100 Output Total Balance 0 100 Intake, Oral 0 100 Number 1 Bowel Movements Patient 84.623 kg Weight 1. AV-graft blood clot 2. ESRD on HD 3. Uremia 4. Hyperkalemia (resolved) Plan - Continue on general medicine - Follow nephrology recommendations - Will go for tunneled catheter placement on Saturday - Continue home medications - DVT PPx
[2017-11-30 21:58] VITALS: BP 130/64
--- NOTE | 2017-11-30 22:02 | PN- Housestaff ---
Subjective Follow-up For: ESRD Complaints: no complaints Subjective: Patient seen and examined at bedside. was present inroom. Patient has no c/o, she is tolerating her diet. She is describing how her IJ cath. was bleeding, but the surrounding dressing was changed last night by on-call team. Review of Systems Constitutional: Denies: no symptoms, chills, diaphoresis, fever. Cardiovascular: Denies: chest pain, palpitations. Respiratory: Denies: cough, hemoptysis, wheezing. Gastrointestinal: Denies: abdominal pain, constipation, diarrhea, nausea, vomiting. Objective Last 24 Hrs of Vital Signs/I&O Vital Signs Date Time Temp Pulse Resp B/P B/P Pulse O2 O2 Flow FiO2 Mean Ox Delivery Rate 11/30 1426 98.2 83 22 120/80 98 11/30 0944 71 114/60 11/30 0940 71 114/60 11/30 0617 98.1 73 20 102/60 96 Room Air Intake & Output 11/30 1600 11/30 0800 11/30 0000 Intake Total 480 0 100 Output Total 0 Balance 480 0 100 Intake, Oral 480 0 100 Number 0 1 Bowel Movements Output, Urine 0 Patient 187 lb Weight Physical Exam General Appearance: Alert, Oriented X3, Cooperative Skin: No Rashes HEENT: Atraumatic, blind in both eyes Neck: IJ on left side, no erythema, warmth or discharge appreciated Cardiovascular: Regular Rate, Normal S1, Normal S2 Lungs: Clear to Auscultation, Normal Air Movement Abdomen: Normal Bowel Sounds, Soft, No Tenderness Extremities: No Cyanosis, No Edema, Normal Pulses, BUE AV fistuals, non functional, no bruit or thrill Vascular: Normal Pulses, Pulses Symmetrical Assessment/Plan Assessment: 66 year old female with PMH end stage renal disease on HD, DM, HTN, HLD, TIARA admitted 2/2 clotted AV fistula and unable to receive dialysis. Her HD schedule is usually MWF. She has remained asymptomatic but does reports mild SOB that is chronic. She was admitted to the general medicine floor for ELLIS catheter placement. In the meantime, she will have a temporary access placed into Left IJ. Patient underwent dialysis today. #End stage renal disease on HD -IR temporary left IJ access in place -Today INR is at 1.24 from 2.0 admission 2/2 warfarin -Nephrology consulted and following with recs: continued off warfarin -ELLIS catheter placement on Saturday; NPO Saturday night after MN #Dyspnea -Continue to monitor sats -CXR shows no acute findings #Chronic illnesses -continue home medications DVT prophylaxis: alps Problem List: 1. End stage kidney disease Pain Ratin Pain Location: n/a Pain Goal: Remain pain free Pain Plan: n/a Tomorrow's Labs & Rationales: cbc,bep DVT/Prophylaxis: mechanical
[2017-12-01 06:38] VITALS: BP 104/56
--- NOTE | 2017-12-01 08:28 | PN- Housestaff ---
See Addendum Subjective Follow-up For: ESRD Complaints: no complaints Subjective: Patient was seen and examined at the bedside. Patient has no complaints this morning. Did request that we obtain a cane for her before she goes home from dialysis. Review of Systems Constitutional: Reports: no symptoms. Objective Last 24 Hrs of Vital Signs/I&O Vital Signs Date Time Temp Pulse Resp B/P B/P Pulse O2 O2 Flow FiO2 Mean Ox Delivery Rate 12/01 1357 98.8 69 20 100/58 100 Room Air 12/01 0939 78 120/54 12/01 0935 78 120/54 12/01 0638 98.3 74 20 104/56 98 Room Air / 0000 97 Room Air 11/30 2158 98.2 79 20 130/64 97 Room Air Intake & Output 12/01 1600 12/01 0800 12/01 0000 Intake Total 300 Output Total Balance 300 Intake, Oral 300 Number 1 Bowel Movements Patient 184 lb Weight Weight Bed scale Measurement Method Physical Exam General Appearance: Alert, Cooperative, No Acute Distress Skin: No Rashes, No Breakdown Skin Temp/Moisture Exam: Warm/Dry HEENT: Atraumatic Neck: Supple, No thryomegaly Cardiovascular: Regular Rate, Normal S1, Normal S2, No Murmurs Lungs: Clear to Auscultation, Normal Air Movement Abdomen: Soft, No Tenderness Neurological: Normal Speech (presumed, due to accent) Extremities: No Clubbing, No Cyanosis, No Edema Assessment/Plan Assessment: 66 year old female with PMH end stage renal disease on HD, DM, HTN, HLD, TIARA admitted 2/2 clotted AV fistula and unable to receive dialysis. Her HD schedule is usually MWF. She has remained asymptomatic but does reports mild SOB that is chronic. She was admitted to the general medicine floor for ELLIS catheter placement. In the meantime, she will have a temporary access placed into Left IJ. Patient underwent dialysis today. Problem list: Plan: DVT prophylaxis: ALPS Patient is full code Problem List: 1. End stage kidney disease Pain Ratin Pain Location: none Pain Goal: Remain pain free Pain Plan: None Tomorrow's Labs & Rationales: No lab
[2017-12-01 13:57] VITALS: BP 100/58
[2017-12-01 21:35] VITALS: BP 112/60
[2017-12-02 06:46] VITALS: BP 122/60
--- NOTE | 2017-12-02 07:18 | PN- Housestaff ---
See Addendum Subjective Follow-up For: ELLIS cath placement for dialysis access in setting of clotted AV fistula Complaints: no complaints Subjective: Patient states she feels fine this morning and has no complaints. States she slept well overnight. Denies n/v/d, chest pain, SOB, fever, chills. She has been NPO overnight and is ready for her procedure today Review of Systems Constitutional: Reports: see HPI. Objective Last 24 Hrs of Vital Signs/I&O Vital Signs Date Time Temp Pulse Resp B/P B/P Pulse O2 O2 Flow FiO2 Mean Ox Delivery Rate 12/02 0646 98.2 70 20 122/60 96 Room Air 12/01 2135 98.4 76 20 112/60 92 08 1357 98.8 69 20 100/58 100 Room Air 12/01 0939 78 120/54 12/01 0935 78 120/54 Intake & Output 12/02 0800 12/02 0000 12/01 1600 Intake Total 300 720 Output Total Balance 300 720 Intake, Oral 300 720 Number 0 Bowel Movements Physical Exam General Appearance: Alert, Oriented X3, Cooperative, No Acute Distress Skin: No Rashes, temporary left IJ access line intact with no surrounding erythema or swelling Skin Temp/Moisture Exam: Warm/Dry HEENT: Atraumatic Neck: Supple Cardiovascular: Regular Rate, Normal S1, Normal S2 Lungs: Clear to Auscultation, Normal Air Movement Abdomen: Normal Bowel Sounds, Soft, No Tenderness Extremities: No Edema, Normal Pulses, scars from previous AV fistulas bilateral upper extremities-cord like to palpation-non functional Assessment/Plan Assessment: 66 year old female with PMH end stage renal disease on HD, DM, HTN, HLD, TIARA admitted 2/2 clotted AV fistula and unable to receive dialysis. Her HD schedule is usually MWF. She has remained asymptomatic but reported mild SOB that is chronic. She was admitted to the general medicine floor for ELLIS catheter placement. In the meantime, she has a temporary access placed into Left IJ. #End stage renal disease on HD -Temporary left IJ access in place -follow up INR this morning -Nephrology consulted and following with recs: continued off warfarin; patient and family considering peritoneal dialysis option. Will need referral at discharge if they decide to do this. -ELLIS catheter placement today at 11:30am #Dyspnea -Continue to monitor 02 sats; Sats 96% on RA this morning -CXR shows no acute findings #Chronic illnesses -continue home medications Dispo: Possible d/c home later today post dialysis and ELLIS cath placement if patient doing well. DVT prophylaxis: alps Problem List: 1. Dialysis AV fistula malfunction 2. End stage kidney disease Pain Ratin Pain Location: none Pain Goal: Remain pain free Pain Plan: see a/p Tomorrow's Labs & Rationales: inr, bep
[2017-12-02 08:36] LABS: ABSOLUTE BASOPHIL COUNT 0 /CUMM (0.0-0.2); ABSOLUTE EOSINOPHIL COUNT 0.6 /CUMM (0.0-0.7); ABSOLUTE GRANULOCYTE CT 3.9 /CUMM (1.4-6.5); ABSOLUTE LYMPH COUNT 2.3 /CUMM (1.2-3.4); ABSOLUTE MONOCYTE COUNT 0.7 /CUMM (0.10-0.60); BASOPHIL % 0.2 % (0.0-2.0); EOSINOPHIL % 7.6 % (0-5); GRANULOCYTE % 52.2 % (42.2-75.2); MEAN CORPUSCULAR HGB 30.5 PG (27.0-31.0); MEAN CORPUSCULAR HGB CONC 32.6 G/DL (33.0-37.0); MEAN CORPUSCULAR VOLUME 93.5 FL (81.0-99.0); MEAN PLATELET VOLUME 9.4 FL (7.4-10.4); PLATELET COUNT 198 /CUMM (130-400); RBC DISTRIBUTION WIDTH 17.4 % (11.5-14.5); RED BLOOD CELL CT 3.74 /CUMM (4.20-5.40); WHITE BLOOD CELL COUNT 7.5 /CUMM (4.8-10.8)
--- NOTE | 2017-12-02 09:56 | Discharge Summary ---
Visit Information Visit Dates Admission Date: 11/28/17 Discharge Date: 12/03/17 Hospital Course Course Attending Physician: Martín Morgan MD Primary Care Physician: Juan Pablo FRANCIS,[facility] Course: Ms. Franklin is a 66 year old female with H end stage renal disease on HD, DM, HTN, HLD, TIARA admitted 2/2 clotted AV fistula and unable to receive dialysis. Her HD schedule is usually MWF. She has remained asymptomatic but reported mild SOB that is chronic. She was admitted to the general medicine floor for ELLIS catheter placement. She was treated for the following problems: Problem List: 1. End stage renal disease on HD 2. Dyspnea 3. Chronic medical issues: HTN, HLD, DM #End stage renal disease on HD -Temporary left IJ access was initially placed. -Nephrology consulted: continued off warfarin indefiniately. -ELLIS catheter placement 12/02 went well. There was some mild bleeding controlled with pressure. Patient will continue MWF dialysis. #Dyspnea: Patient was complaining of shortness of breath. -Monitored throughout hospital course and saturations remained above 95% on RA -CXR showed no acute findings -Resolved without intervention. If it persists, patient may require outpatient pulmonology follow up. #Chronic illnesses -all home medications were continued except warfarin She tolerated the procedure well and was stable for discharge home on 12/03 with outpatient follow up with her PCP and Nephrology. Allergies: Coded Allergies: No Known Allergies (02/01/17) Disposition Summary Disposition Principal Diagnosis: 1. End stage renal disease on HD Additional Diagnosis: 2. Dyspnea Discharge Disposition: SNF Discharge Instructions General Discharge Information Code Status: Full Code Patient's Diet: Renal dialysis diet Patient's Activity: As tolerated Follow-Up Instructions/Appts: Please take all medications as directed. Please follow up with primary care and nephrology. Medications at Discharge Discharge Medications: Stop taking the following medications: Warfarin Sodium (Coumadin) 2.5 MG TABLET ORAL 5 PM Qty = 45 Continue taking these medications: Sennosides/Docusate Sodium (Senna S Tablet) 1 EACH TABLET 2 Tablet ORAL AT BEDTIME Comments: NOT GIVEN IN HOSPITAL Calcium Acetate (Phoslyra) 667 MG (169 MG CALCIUM)/5 ML SOLUTION 2 Capsule ORAL THREE TIMES DAILY Comments: NOT TAKEN IN HOSPITAL Atorvastatin Calcium (Atorvastatin Calcium) 10 MG TABLET 1 Tablet ORAL DAILY Comments: Last Taken: 12/02/17 Time: 4:23 PM Gabapentin (Gabapentin) 300 MG CAPSULE 1 Capsule ORAL THREE TIMES DAILY as needed for NERVE PAIN Comments: Last Taken:NOT GIVEN IN THE HOSPITAL Time: Cinacalcet HCl (Sensipar) 30 MG TABLET 1 Tablet ORAL DAILY Qty = 30 Comments: NOT TAKEN IN HOSPITAL Losartan Potassium (Losartan Potassium) 25 MG TABLET 1 Tablet ORAL DAILY Qty = 30 Comments: NOT TAKEN IN HOSPITAL Acetaminophen (Tylenol) 325 MG TABLET 1 Tablet ORAL as needed for PAIN Comments: Last Taken: 12/02/17 Time: 4:26 PM Aspirin (Ecotrin*) 81 MG TABLET.DR 1 Tablet ORAL DAILY Comments: NOT TAKEN IN HOSPITAL Dipyridamole W/ Aspirin (Aggrenox 25 MG-200 MG Capsule) 25 MG-200 MG CPMP.12HR 1 Capsule ORAL TWICE DAILY Comments: NOT TAKEN IN HOSPITAL Cholecalciferol (Vitamin D3) (Vitamin D) 2,000 UNIT CAPSULE 1 Capsule ORAL DAILY Comments: NO GIVEN IN HOSPITAL Nephro-Vitamins (Nephro-Tawana Tablet) 0.8 MG TABLET 1 Tablet ORAL DAILY Comments: Last Taken: 12/03/17 Time: 11:18 AM Insulin Detemir (Levemir) 100 UNIT/ML VIAL 6 Units Inject into fatty tissue Every night Comments: Last Taken: 12/02/17 Time: 9:09 PM Insulin Lispro (Humalog) 100 UNIT/ML VIAL 5 Unit Inject into fatty tissue BIDAC Qty = 10 Comments: NOT GIVEN IN HOSPITAL diphenhydrAMINE HCl (Benadryl) 25 MG CAPSULE 1 Capsule ORAL Every Morning Comments: NOT TAKEN IN HOSPITAL Insulin Aspart (Novolog) 100 UNIT/ML VIAL 0 Units Inject into fatty tissue 3 TIMES DAILY BEFORE MEALS Days = 30 Instructions: BEFORE MEALS Blood Insulin Sugar Units <80 0 81-150 2 151-200 3 201-250 4 251-300 5 301-350 6 351-400 7 >400 7 Call Doctor Comments: Last Taken: 12/03/17 Time: 4:30 PM Amlodipine Besylate (Amlodipine Besylate) 10 MG TABLET 1 Tablet ORAL DAILY Qty = 30 Comments: NOT GIVEN IN HOSPITAL. PT WAS HYPOTENSIVE Copies To: Juan Pablo FRANCIS,Stan; Deborah FRANCIS,Iftikhar Andino Attending MD Review Statement Documenting Attending: Martín Morgan MD Other Findings: The patient was seen and discussed with house staff. Agree with the above summary of care. The patient will go to [facility] at [place] prior to returning home. She will no longer be on Coumadin per Nephrology.
--- NOTE | 2017-12-02 10:39 | Patient Discharge Instructions ---
Discharge Instructions General Discharge Information You were seen/treated for: End-stage renal disease on hemodialysis, hyperkalemia Watch for these problems: Fever, chest pain, shortness of breath Special Instructions: Please take all medications as directed. Please follow-up with primary care. Diet Continue normal diet: No Recommended Diet: Renal Dialysis Activity Full Activity/No Limits: Yes Acute Coronary Syndrome Inclusion Criteria At DC or during hospital stay patient has or had the following: ACS DIAGNOSIS No Discharge Core Measures Meds if any: Prescribed or Continued at Discharge Meds if any: NOT Prescribed or Continued at Discharge Congestive Heart Failure Inclusion Criteria At DC or during hospital stay patient has or had the following: CHF DIAGNOSIS No Discharge Core Measures Meds if any: Prescribed or Continued at Discharge Meds if any: NOT Prescribed or Continued at Discharge Cerebrovascular accident Inclusion Criteria At DC or during hospital stay patient has or had the following: CVA/TIA Diagnosis No Discharge Core Measures Meds if any: Prescribed or Continued at Discharge Meds if any: NOT Prescribed or Continued at Discharge Venous thromboembolism Inclusion Criteria VTE Diagnosis No VTE Type NONE VTE Confirmed by (Test) NONE Discharge Core Measures - Per Current guidelines, there needs to be overlap - treatment for the first 5 days of Warfarin therapy. - If discharged on Warfarin prior to 5 days of - overlap therapy, the patient will need to be - assessed for post discharge needs including - *Post discharge parental anticoagulation - *Warfarin and/or parental anticoagulation education - *Follow up date to check INR post discharge At least 5 days overlap therapy as Inpatient No Meds if any: Prescribed or Continued at Discharge Note: Overlap Therapy is Warfarin and Anticoagulant Meds if any: NOT Prescribed or Continued at Discharge
--- NOTE | 2017-12-02 11:00 | PN- Nephrology ---
Assessment/Plan Nephrology Assessment: 1. ESRD 2. Clotted AV grafts -recurrent Suggestion: 1. Hemodialysis today in progress with ultrafiltration to her target weight 2. For tunneled dialysis catheter placement after dialysis today 3. Okay for discharge later today from Renal standpoint Subjective Subjective: Patient seen with hemodialysis which is currently in progress. No complaints. Labs reviewed. Patient is to go for an Fco catheter placement after dialysis today and possible discharge afterwards. With regard to peritoneal dialysis, this option will be explored further with her family as an outpatient. Objective Vital Signs and I&Os Vital Signs Date Time Temp Pulse Resp B/P B/P Pulse O2 O2 Flow FiO2 Mean Ox Delivery Rate 12/02 0546 98.2 70 20 122/60 96 Room Air 12/01 2135 98.4 76 20 112/60 92 12/01 1357 98.8 69 20 100/58 100 Room Air Intake & Output 12/02 1600 12/02 0400 12/01 1600 12/01 0400 11/30 1600 11/30 0400 Intake Total 0 300 720 300 480 100 Output Total 250 0 Balance -250 300 720 300 480 100 Intake, Oral 0 300 720 300 480 100 Number 1 0 1 1 Bowel Movements Output, Urine 250 0 Patient 184 lb 187 lb Weight Weight Bed scale Measurement Method Physical Exam: General: Well-developed black female in NAD Skin: No rash or lesions HEENT: Conjunctivae pink, sclerae anicteric, blind OU, mucous membranes moist Neck: Without masses or thyromegaly, no supraclavicular or cervical adenopathy Chest: Clear to P&A Heart: Irregular rhythm without S3 or rub Abdomen: Soft and nontender without palpable masses or organomegaly Extremities: Without cyanosis or edema Neuro: Cognitively intact, no focal findings, no asterixis or myoclonus Results Pertinent Lab Results: Laboratory Tests 12/02 12/01 12/01 0750 0800 0600 Chemistry Sodium (137 - 145 mmol/L) 135 L Cancelled Potassium (3.5 - 5.1 mmol/L) 5.6 H Cancelled Chloride (98 - 107 mmol/L) 95 L Cancelled Carbon Dioxide (22 - 30 mmol/L) 20 L Cancelled Anion Gap (5 - 16) 20 H Cancelled BUN (7 - 17 mg/dL) 90 H Cancelled Creatinine (0.5 - 1.0 mg/dL) 10.6 *H Cancelled Estimated GFR (>60 ml/min) 4 L BUN/Creatinine Ratio (7 - 25 %) 8.5 Cancelled Glucose (65 - 99 mg/dL) 119 H Calcium (8.4 - 10.2 mg/dL) 8.9 Coagulation PT Cancelled INR Cancelled Hematology CBC w Diff NO MAN DIFF REQ Cancelled WBC (4.8 - 10.8 /CUMM) 7.5 Cancelled RBC (4.20 - 5.40 /CUMM) 3.74 L Cancelled Hgb (12.0 - 16.0 G/DL) 11.4 L Cancelled Hct (37 - 47 %) 35.0 L Cancelled MCV (81.0 - 99.0 FL) 93.5 Cancelled MCH (27.0 - 31.0 PG) 30.5 Cancelled MCHC (33.0 - 37.0 G/DL) 32.6 L Cancelled RDW (11.5 - 14.5 %) 17.4 H Cancelled Plt Count (130 - 400 /CUMM) 198 Cancelled MPV (7.4 - 10.4 FL) 9.4 Cancelled Gran % (42.2 - 75.2 %) 52.2 Lymphocytes % (20.5 - 51.1 %) 30.5 Monocytes % (1.7 - 9.3 %) 9.5 H Eosinophils % (0 - 5 %) 7.6 H Basophils % (0.0 - 2.0 %) 0.2 Absolute Granulocytes (1.4 - 6.5 /CUMM) 3.9 Absolute Lymphocytes (1.2 - 3.4 /CUMM) 2.3 Absolute Monocytes (0.10 - 0.60 /CUMM) 0.7 H Absolute Eosinophils (0.0 - 0.7 /CUMM) 0.6 Absolute Basophils (0.0 - 0.2 /CUMM) 0 11/30 07/ 1005 0600 Chemistry Sodium (137 - 145 mmol/L) 137 Cancelled Potassium (3.5 - 5.1 mmol/L) 5.1 Cancelled Chloride (98 - 107 mmol/L) 96 L Cancelled Carbon Dioxide (22 - 30 mmol/L) 25 Cancelled Anion Gap (5 - 16) 16 Cancelled BUN (7 - 17 mg/dL) 68 H Cancelled Creatinine (0.5 - 1.0 mg/dL) 9.7 *H Cancelled Estimated GFR (>60 ml/min) 4 L BUN/Creatinine Ratio (7 - 25 %) 7.0 Cancelled Glucose (65 - 99 mg/dL) 143 H Calcium (8.4 - 10.2 mg/dL) 8.8 Coagulation PT (9.4 - 12.5 SEC) 13.5 H INR (0.90 - 1.19) 1.24 H Hematology CBC w Diff NO MAN DIFF REQ Cancelled WBC (4.8 - 10.8 /CUMM) 5.1 Cancelled RBC (4.20 - 5.40 /CUMM) 3.60 L Cancelled Hgb (12.0 - 16.0 G/DL) 11.0 L Cancelled Hct (37 - 47 %) 33.6 L Cancelled MCV (81.0 - 99.0 FL) 93.5 Cancelled MCH (27.0 - 31.0 PG) 30.6 Cancelled MCHC (33.0 - 37.0 G/DL) 32.8 L Cancelled RDW (11.5 - 14.5 %) 18.7 H Cancelled Plt Count (130 - 400 /CUMM) 207 Cancelled MPV (7.4 - 10.4 FL) 9.8 Cancelled Gran % (42.2 - 75.2 %) 68.1 Lymphocytes % (20.5 - 51.1 %) 16.4 L Monocytes % (1.7 - 9.3 %) 11.8 H Eosinophils % (0 - 5 %) 3.2 Basophils % (0.0 - 2.0 %) 0.5 Absolute Granulocytes (1.4 - 6.5 /CUMM) 3.5 Absolute Lymphocytes (1.2 - 3.4 /CUMM) 0.8 L Absolute Monocytes (0.10 - 0.60 /CUMM) 0.6 Absolute Eosinophils (0.0 - 0.7 /CUMM) 0.2 Absolute Basophils (0.0 - 0.2 /CUMM) 0 07/06 07/06 1300 1200 Chemistry Glucose Cancelled Calcium Cancelled Coagulation PT (9.4 - 12.5 SEC) 19.9 H INR (0.90 - 1.19) 1.81 H Hematology CBC w Diff NO MAN DIFF REQ WBC (4.8 - 10.8 /CUMM) 5.9 RBC (4.20 - 5.40 /CUMM) 3.62 L Hgb (12.0 - 16.0 G/DL) 10.9 L Hct (37 - 47 %) 33.9 L MCV (81.0 - 99.0 FL) 93.7 MCH (27.0 - 31.0 PG) 30.0 MCHC (33.0 - 37.0 G/DL) 32.0 L RDW (11.5 - 14.5 %) 18.5 H Plt Count (130 - 400 /CUMM) 208 MPV (7.4 - 10.4 FL) 9.9 Gran % (42.2 - 75.2 %) 57.2 Lymphocytes % (20.5 - 51.1 %) 29.4 Monocytes % (1.7 - 9.3 %) 9.1 Eosinophils % (0 - 5 %) 3.6 Basophils % (0.0 - 2.0 %) 0.7 Absolute Granulocytes (1.4 - 6.5 /CUMM) 3.4 Absolute Lymphocytes (1.2 - 3.4 /CUMM) 1.7 Absolute Monocytes (0.10 - 0.60 /CUMM) 0.5 Absolute Eosinophils (0.0 - 0.7 /CUMM) 0.2 Absolute Basophils (0.0 - 0.2 /CUMM) 0
--- NOTE | 2017-12-02 17:09 | INTERVENTIONAL RADIOLOGY RPT ---
PROCEDURE: CONVERSION OF A TEMPORARY DIALYSIS CATHETER TO A TUNNELED PERMACATHETER UNDER FLUOROSCOPIC GUIDANCE CLINICAL INFORMATION: 66-year-old Afro-Citizen Of [place] end-stage renal disease patient with nonfunctioning arm dialysis fistulas. Temporary dialysis catheter placed on 11/29/2017. COMPARISON: Temporary dialysis catheter procedure of 11/29/2017. COLLOID MILL OPERATOR: Randell Mendez M.D. ACCESS: Left external jugular vein TECHNIQUE: The patient was referred by Dr. Martín Morgan. Informed consent was obtained from the patient prior to the procedure. During this process, which occurred via telephone conversation, the procedure and potential alternatives was explained, along with the intended outcome and benefits. The risks of the procedure, as well as the risk of not doing the procedure, were discussed. The patient was given the opportunity to ask questions regarding the procedure and appeared competent to make medical decisions. A witnessed consent form which documents this discussion was placed in the medical record. The patient was brought to the interventional radiology suite and a final Timeout procedure was performed. The patient was placed on the procedure table in the supine position. IV moderate sedation was induced under my direction and supervision. The patient was continuously monitored by a registered nurse. At no time was there evidence of instability. The left neck and chest were sterilely prepped and draped. All elements of maximal sterile barrier technique followed including use of cap, mask, sterile gown, sterile gloves, a sterile full body drape, and hand hygiene. Also followed skin preparation with 2% chlorhexidine for cutaneous antisepsis. The tunnel track was anesthetized using 1% lidocaine and 1% lidocaine with epinephrine. A 15.5 [place] Island[place], 23 cm tip to cuff AshSplit dialysis catheter was tunneled subcutaneously to the access site for the temporary dialysis catheter. The temporary dialysis catheter was removed over a Glidewire and a 16 [place] Island[place] peel-away sheath was inserted. The tunneled permacatheter was then inserted into the peel-away sheath and advanced until its tip in the upper right atrium. The jugular access site was closed using 3-0 Vicryl suture. The hub of the catheter was secured with 0-0 Prolene suture. A Biopatch was placed around the catheter at its entry site. Tego caps placed on the catheter ports. The catheter was flushed with heparinized saline. A sterile dressing was applied. The patient tolerated the procedure well. There was no evidence of complications. FINDINGS: AshSplit permacath placed via the left external jugular vein with its tip at the SVC-right atrial junction. SEDATION TIME: 35 minutes SEDATION MEDICATIONS: 1 mg Versed, 100 mcg fentanyl FLUOROSCOPY TIME: 0.9 minutes ESTIMATED RADIATION EXPOSURE: 1.5 [place]-centimeters square IMPRESSION: Temporary dialysis catheter converted to a tunneled permacath under fluoroscopic guidance via the same access in the left external jugular vein without evidence of complications.
[2017-12-02 21:58] VITALS: BP 110/58
[2017-12-03 06:20] VITALS: BP 124/60
--- NOTE | 2017-12-03 09:10 | PN- Housestaff ---
See Addendum Subjective Follow-up For: s/p ELLIS cath placement by IR Complaints: ELLIS cath site oozing blood overnight Subjective: Patient states she was worried about the ELLIS cath site oozing blood after the procedure and during the night. Pressure was held for 10min for few times during the night and responded to that intervention. She denies fever, chills, n/v/d, chest pain, SOB. Of note: she now requests STR as her left the country today and no one is home to care for her. Review of Systems Constitutional: Reports: see HPI. Objective Last 24 Hrs of Vital Signs/I&O Vital Signs Date Time Temp Pulse Resp B/P B/P Pulse O2 O2 Flow FiO2 Mean Ox Delivery Rate 12/03 0923 90 /50 12/03 0923 90 /50 12/03 0915 90 18 90/50 99 12/03 0620 98.7 75 18 124/60 100 Room Air 12/02 2158 98.6 82 16 110/58 94 Room Air Intake & Output 12/03 1600 12/03 0800 12/03 0000 Intake Total 240 720 Output Total Balance 240 720 Intake, Oral 240 720 Number 1 Bowel Movements Patient 176 lb 170 lb Weight Weight Bed scale Measurement Method Physical Exam General Appearance: Alert, Oriented X3, Cooperative, No Acute Distress Assessment/Plan Assessment: 66 year old female with PMH end stage renal disease on HD, DM, HTN, HLD, TIARA admitted 2/2 clotted AV fistula and unable to receive dialysis. Her HD schedule is usually MWF. She has remained asymptomatic but reported mild SOB that is chronic. She was admitted to the general medicine floor for ELLIS catheter placement. In the meantime, she has a temporary access placed into Left IJ. #End stage renal disease on HD-MWF -Temporary left IJ access in place -post procedure day 1 s/p ELLIS cath placement left chest wall -Nephrology consulted and following with recs: continued off warfarin; patient and family considering peritoneal dialysis option. Will need referral at discharge if they decide to do this. #Dyspnea -Continue to monitor 02 sats; Sats 96% on RA this morning -CXR shows no acute findings #Chronic illnesses -continue home medications Dispo: Will need PT eval and placement at STR most likely. Case management working on this currently. DVT prophylaxis: alps Problem List: 1. Dialysis AV fistula malfunction 2. End stage kidney disease Pain Ratin Pain Location: none Pain Goal: Remain pain free Pain Plan: see a/p Tomorrow's Labs & Rationales: bep
[2017-12-03 09:15] VITALS: BP 90/50
[2017-12-03 14:46] VITALS: BP 100/60
[2017-12-03 17:17] VITALS: BP 100/60
== END 2017-12-03 17:40 | DRG 314 ==
LOC: ERH 09:59 → ERHI 16:26 → 2NA 16:26 → ENRESERV 18:12 → CANRESERV 18:12 → ENRESERV 18:24 → ENTRNSPT 19:00 → EDTRNSPTSTS 19:03 → 2NA 19:12 → CMPTRNSPT 19:22 → 2NA 12-03 17:40
PROVIDERS: Internal Medicine; Internal Medicine Nephrology; Student in an Organized Health Care Education/Training Program
PROC: 5A1D70Z Performance of Urinary Filtration, Intermittent, Less than 6 Hours Per Day (ICD-10-PCS; 2017-11-29)
PROC: 02HV33Z Insertion of Infusion Device into Superior Vena Cava, Percutaneous Approach (ICD-10-PCS; principal; 2017-12-02)
DX: T82.868A Thrombosis due to vascular prosthetic devices, implants and grafts, initial encounter (principal); N18.6 End stage renal disease; I12.0 Hypertensive chronic kidney disease with stage 5 chronic kidney disease or end stage renal disease; E11.22 Type 2 diabetes mellitus with diabetic chronic kidney disease; Z99.2 Dependence on renal dialysis; Z79.4 Long term (current) use of insulin; H54.7 Unspecified visual loss; E87.5 Hyperkalemia
CPT/HCPCS: 04007; 2NAP; 71046; 77001; 82436; 93005; 93010; 97116-GO; 97161-GP; 97530-GO; C1752; C1769; J0636; J0885; J1644; J2001